=== PATIENT | female | born 1955 | race Caucasian/White ===

== ENCOUNTER → 2017-01-08 | Outpatient (CLI) | payer BC ==
[~2017-01-08] MED LIST: MULT-506 PO
--- NOTE | 2017-01-09 14:53 | MAMMOGRAPHY REPORT ---
BILATERAL DIGITAL SCREENING MAMMOGRAM TOMOSYNTHESIS WITH CAD: 01/08/2017 CLINICAL HISTORY: Routine screening. Patient has no complaints. TECHNIQUE: Breast tomosynthesis in addition to standard 2D mammography was performed. Current study was also evaluated with a Computer Aided Detection (CAD) system. COMPARISON: Comparison is made to exams dated: 01/06/2016 mammogram, 11/03/2014 mammogram, 07/01/2013 mammogram, 04/18/2012 mammogram, 04/18/2012 ultrasound, and 04/11/2012 mammogram - [facility]. BREAST COMPOSITION: The tissue of both breasts is heterogeneously dense, which may obscure small ma sses. FINDINGS: The parenchymal pattern is similar to prior mammograms. There are bilateral benign rim c alcifications. Stable nodular asymmetry in the inferior left breast on the MLO view. No developing mass, architectural distortion or cluster of suspicious microcalcifications is seen in either breas t. IMPRESSION: ACR BI-RADS CATEGORY 2: BENIGN There is no mammographic evidence of malignancy. A 1 year screening mammogram is recommended. The p atient will receive written notification of the results. Approximately 10% of breast cancers are not detected with mammography. A negative mammographic repor t should not delay biopsy if a clinically suggestive mass is present. Dinorah Hicks M.D. ay/:01/08/2017 18:46:08 [employer]: Nidhi MITCHELL(R)(M), [facility] letter sent: Normal 1/2 BI-RADS Code: ACR BI-RADS Category 2: Benign
== END | disposition home or self-care (01) ==
LOC: C.MAMM 13:28
PROVIDERS: ATTEND Obstetrics & Gynecology
DX: Z12.31 Encounter for screening mammogram for malignant neoplasm of breast (principal)

== ENCOUNTER → 2017-05-15 | Outpatient (CLI) | payer BC | END | disposition home or self-care (01) | LOC: C.PAPS 11:16 | PROVIDERS: ATTEND Obstetrics & Gynecology | DX: Z01.419 Encounter for gynecological examination (general) (routine) without abnormal findings (principal) ==

== ENCOUNTER 2023-10-29 15:20 | Observation (INO) ==
--- NOTE | 2023-10-29 15:59 | ED Triage Note ---
Date of Service October 29, 2023 Provider in Triage Author: Shira Velasco History of Present Illness This patient was briefly evaluated while in triage. An abbreviated physical exam was performed. This patient is a 68-year-old Female who presents to the ED for evaluation of chest pain. She developed itchiness and hives last night which has continued. She has swelling of the lips today. She recently completed a course of Macrobid. After eating around 1.5 hours ago she developed a severe chest pain with radiation into her back which has improved about 5 minutes ago. She states that earlier in the day she had some fatigue and shortness of breath. She denies cardiac history. Physical Exam VITALS: Vitals are noted on the nurse's note and reviewed by myself. GENERAL: This is a 68-year-old female, in no acute distress, well-developed well-nourished. SKIN: Diffuse urticaria. HEENT: Swelling of the lower lip noted. HEART: Regular rate and rhythm. LUNGS: Clear to auscultation. No accessory muscle use. NEURO: Alert and oriented. No obvious neurological deficits on quick neuro exam. Initial orders for labs and / or imaging were placed and patient was placed in the waiting area until a bed is available. Please see further documentation for the full ED course.
--- NOTE | 2023-10-29 17:03 | XRay Report ---
SINGLE VIEW CHEST CLINICAL HISTORY: Atypical chest pain FINDINGS: An AP, portable, upright chest radiograph is obtained. No prior studies are available for c omparison at the time of dictation. The examination is degraded by portable technique and patient rot ation. The cardiomediastinal silhouette is unremarkable. There is bibasilar scarring/atelectasis. No nspecific interstitial thickening is likely chronic. No airspace consolidation or large pleural effus ion is identified. No pneumothorax is seen. The skeletal structures are osteopenic. The bony thorax i s grossly intact. IMPRESSION: No acute cardiopulmonary abnormality. ACT 112: Negative or not required by law. Electronically signed by: Santi Cardona M.D. 10/29/2023 5:02 PM
[2023-10-29] MEDS: dexAMETHasone**PF** 10 MG/ML VIAL IV ONE (17:15)
[2023-10-29 17:21] LABS: Basophils # (auto) 0.01 K/uL (0.00-0.20); Basophils % (auto) 0.1 %; Eosinophils # (auto) 0.04 K/uL (0.00-0.50); Eosinophils % (auto) 0.4 %; Hematocrit (blood only) 42.3 % (37.0-47.0); Hemoglobin 14.3 g/dl (12.0-16.0); Immature Granulocytes # (auto) 0.02 K/uL (0.01-0.20); Immature Granulocytes % (auto) 0.2 %; Lymphocytes # (auto) 0.95 K/uL (1.20-3.40); Lymphocytes % (auto) 9.1 %; Mean Corpuscular Hemoglobin 29.2 pg (25.0-34.0); Mean Corpuscular Hgb Conc 33.8 g/dL (32.0-36.0); Mean Corpuscular Volume 86.5 fL (80.0-100.0); Mean Platelet Volume 10.3 fL (9.4-12.4); Monocytes # (auto) 0.47 K/uL (0.11-0.59); Monocytes % (auto) 4.5 %; Neutrophils # (auto) 8.95 K/uL (1.40-6.50); Neutrophils % (auto) 85.7 %; Platelet Count 243 K/uL (130-400); RDW Coefficient of Variation 12.2 % (11.5-14.5); RDW Standard Deviation 38.7 fL (36.4-46.3); Red Blood Count 4.89 M/uL (4.20-5.40); White Blood Count 10.44 K/ul (4.8-10.8)
[2023-10-29 17:32] LABS: Albumin Globulin Ratio 2.1 (0.9-2); Albumin Level 4.4 gm/dl (3.4-5.0); BUN Creatinine Ratio 23.1 (10-20); Bilirubin,Total 0.6 mg/dl (0.2-1.0); Calcium 9.2 mg/dl (8.6-10.3); Creatinine Clr Calc Pharmacy 71.1 ml/min; Est GFR (African American) 89.9 ml/min; Est GFR (Non-African American) 77.6 ml/min; Globulin 2.1 gm/dl (2.5-4.0); Potassium 4.5 mmol/L (3.5-5.1); Total Protein 6.5 gm/dl (6.0-8.3)
[2023-10-29 17:39] LABS: Troponin I High Sensitivity 3.7 pg/ml (0-14)
[2023-10-29] MEDS: FAMOTIDINE 20MG IV PUSH 20 MG/5 ML SYR IV STA (19:51)
[2023-10-29] MEDS: CETIRIZINE HCL 10 MG TABLET PO ONE (19:51)
--- NOTE | 2023-10-29 20:25 | Emergency Department Note ---
ED Provider Note History of Present Illness Chief Complaint: Chest Pain Stated Complaint: HIVES AND CHEST PAINS Time Seen by Provider: 10/29/23 17:33 This is a 68-year-old female with a history of Ariza's esophagus accompanied by her who presents to the emergency department with hives and chest pain. She states that yesterday she started noticing an itchy rash on her face. This progressed onto the rest of her body through the night and she was very pruritic overnight, did not sleep very much. The rash persisted today. She was at home and had just finished eating a meal when she developed sharp stabbing central chest pain that radiated to her back and lasted for about 2 hours. She felt nauseous but did not have any vomiting. The pain did not radiate into her arm or jaw. The pain seemed to resolve for the most part but caused the patient enough concern to come to the emergency department to have this evaluated. She does admit that she was feeling a little short of breath earlier today before the chest pain. She was having some pain when she took a deep breath in earlier, but that is not present now. She has not had any fevers, chills, abdominal pain, cough, hemoptysis. No history of anaphylaxis. Has a history of allergy to certain foods but not causing hives or anaphylaxis. Patient is otherwise healthy, no history of cardiac disease, diabetes, hypertension, or hyperlipidemia. She has 2 brothers who have recently been diagnosed with abdominal aortic aneurysms. Home Medications Medication Instructions Recorded Confirmed Type acetaminophen 500 mg tablet 1,000 mg PO TID PRN pain 12/27/20 10/29/23 History lifitegrast 5 % eye drops in a 1 drp ophthalmic (eye) BID 12/27/20 10/29/23 History dropperette (Xiidra) conjugated estrogens 0.625 mg/gram 0.3125 mg vaginal 2XWK 10/29/23 10/29/23 History vaginal cream (Premarin) Allergies Allergy/AdvReac Type Severity Reaction Status Date / Time gluten Allergy Intermediate stomach Verified 10/29/23 19:57 ache, nausea lactose Allergy Intermediate diarrhea, Verified 10/29/23 19:57 cramps, nausea, fatigue Soy Allergy Intermediate acid Uncoded 10/29/23 19:57 reflux, lost voice, difficulty swallowing Past Med/Surg History Medical History Left foot pain Chronic thumb pain, bilateral Asymptomatic menopausal state Postmenopausal atrophic vaginitis Osteopenia dexa 04/13 Surgical History History of tonsillectomy and adenoidectomy H/O oral surgery History of colonoscopy H/O section x2 Family History Mother Cancer unknown primary, lung? Uncle No problems noted. Aunt No problems noted. Father Pancreatic cancer Other Breast cancer Denies family history of Ovarian cancer Social History Smoking Status: Never smoker Do You Dip or Chew Tobacco: No; Feels Safe at Home: Yes Physical Exam Vital Signs Vital Signs - 24 hr 10/29/23 15:57 10/29/23 16:50 10/29/23 17:13 Temperature 97.7 F Temperature Source Temporal Artery Scan Pulse Rate 83 85 Pulse Rate from SpO2 Sensor Respiratory Rate 20 15 Respiratory Effort / Characteristics Non-Labored Spontaneous Respiratory Depth Normal Blood Pressure 121/83 Blood Pressure Mean 95 Pulse Oximetry 97 98 Oxygen Delivery Method Room Air Room Air Sepsis Recent Fever Within 48 Hours No Sepsis New/Unexplained Change in Mental Status No Sepsis Action Taken by Nursing No Action Required 10/29/23 17:20 10/29/23 17:25 10/29/23 17:30 Temperature Temperature Source Pulse Rate 65 77 64 Pulse Rate from SpO2 Sensor Respiratory Rate 13 13 Respiratory Effort / Characteristics Respiratory Depth Blood Pressure Blood Pressure Mean Pulse Oximetry Oxygen Delivery Method Sepsis Recent Fever Within 48 Hours Sepsis New/Unexplained Change in Mental Status Sepsis Action Taken by Nursing 10/29/23 17:40 10/29/23 17:50 10/29/23 18:00 Temperature Temperature Source Pulse Rate 69 61 62 Pulse Rate from SpO2 Sensor Respiratory Rate 22 9 L 14 Respiratory Effort / Characteristics Respiratory Depth Blood Pressure Blood Pressure Mean Pulse Oximetry Oxygen Delivery Method Sepsis Recent Fever Within 48 Hours Sepsis New/Unexplained Change in Mental Status Sepsis Action Taken by Nursing 10/29/23 18:10 10/29/23 18:20 10/29/23 18:30 Temperature Temperature Source Pulse Rate 65 64 66 Pulse Rate from SpO2 Sensor Respiratory Rate 12 18 23 Respiratory Effort / Characteristics Respiratory Depth Blood Pressure Blood Pressure Mean Pulse Oximetry Oxygen Delivery Method Sepsis Recent Fever Within 48 Hours Sepsis New/Unexplained Change in Mental Status Sepsis Action Taken by Nursing 10/29/23 18:40 10/29/23 18:50 10/29/23 19:00 Temperature Temperature Source Pulse Rate 64 66 67 Pulse Rate from SpO2 Sensor Respiratory Rate 15 17 13 Respiratory Effort / Characteristics Respiratory Depth Blood Pressure 123/55 L Blood Pressure Mean 77 Pulse Oximetry 97 Oxygen Delivery Method Sepsis Recent Fever Within 48 Hours Sepsis New/Unexplained Change in Mental Status Sepsis Action Taken by Nursing 10/29/23 19:06 10/29/23 19:08 10/29/23 19:51 Temperature Temperature Source Pulse Rate 66 66 70 Pulse Rate from SpO2 Sensor 69 Respiratory Rate 18 18 17 Respiratory Effort / Characteristics Respiratory Depth Blood Pressure 123/55 L Blood Pressure Mean 66 Pulse Oximetry 97 97 Oxygen Delivery Method Sepsis Recent Fever Within 48 Hours Sepsis New/Unexplained Change in Mental Status Sepsis Action Taken by Nursing 10/29/23 20:00 10/29/23 20:10 10/29/23 20:20 Temperature Temperature Source Pulse Rate 65 68 71 Pulse Rate from SpO2 Sensor 65 66 72 Respiratory Rate 13 13 18 Respiratory Effort / Characteristics Respiratory Depth Blood Pressure Blood Pressure Mean Pulse Oximetry 97 96 98 Oxygen Delivery Method Sepsis Recent Fever Within 48 Hours Sepsis New/Unexplained Change in Mental Status Sepsis Action Taken by Nursing CONSTITUTIONAL: Well developed, well nourished, in no acute distress, EYES: conjunctivae normal, extraocular muscles intact. ENMT: External ears normal. Nose with normal external appearance, no congestion. Oral mucous membranes moist. Oropharynx normal. No angioedema. No significant facial rash. NECK: Full active range of motion. RESPIRATORY: Breathing unlabored and symmetric. Lungs clear to auscultation bilaterally. No wheeze, rales, or rhonchi. CARDIOVASCULAR: Regular rate and rhythm. No murmurs, rubs, or gallops. ABDOMEN: Normal bowel sounds. Soft, nontender, no peritonitis. No masses. MUSCULOSKELETAL: Moves all extremities at all joints without pain or difficulty. No edema or tenderness in bilateral lower extremities. SKIN: [place], warm, dry. There are slightly raised blanchable urticarial lesions present on bilateral medial thighs and less prominent on the back. No blistering. NEUROLOGIC: Awake, alert, oriented. Gaze is conjugate. Face symmetric, speech normal. Moves head and all four extremities spontaneously. Sensation and strength grossly intact. Course Administered Medications Discontinued Medications Cetirizine HCl (Cetirizine Hcl 10 Mg Tablet) 10 mg PO NOW ONE Stop: 10/29/23 19:20 Last Admin: 10/29/23 19:51 Dose: 10 mg Documented By: FARA Dexamethasone Sodium Phosphate (DexamethasonePf 10 Mg/Ml Vial) 10 mg IV NOW ONE Stop: 10/29/23 16:02 Last Admin: 10/29/23 17:15 Dose: 10 mg Documented By: DRE Famotidine (Pepcid 20mg Iv Push) 20 mg in 5 mls @ 2.5 mls/min IV NOW STA Stop: 10/29/23 19:20 Last Admin: 10/29/23 19:51 Dose: 2.5 mls/min Documented By: FARA Medical Decision Making Differential Diagnosis Myocardial infarction, pulmonary embolism, pneumothorax, esophageal rupture, pneumonia, aortic dissection, GERD, costochondritis, reactive airway disease, upper respiratory infection, bronchitis, pericarditis, myocarditis, effusion, muscle spasm, anaphylaxis, Mccurdy-Vamshi syndrome, urticaria, dermatitis, pityriasis rosea, erythema multiforme, among other pathology Laboratory Data 10/29/23 16:35 10/29/23 16:35 Lab Results 10/29/23 Range/Units 16:35 WBC 10.44 (4.8-10.8) K/ul RBC 4.89 (4.20-5.40) M/uL Hgb 14.3 (12.0-16.0) g/dl Hct 42.3 (37.0-47.0) % MCV 86.5 (80.0-100.0) fL MCH 29.2 (25.0-34.0) pg MCHC 33.8 (32.0-36.0) g/dL RDW Std Deviation 38.7 (36.4-46.3) fL RDW Coeff of Tamra 12.2 (11.5-14.5) % Plt Count 243 (130-400) K/uL MPV 10.3 (9.4-12.4) fL Immature Gran % (Auto) 0.2 % Neut % (Auto) 85.7 % Lymph % (Auto) 9.1 % [place] % (Auto) 4.5 % Eos % (Auto) 0.4 % Baso % (Auto) 0.1 % Neut # (Auto) 8.95 H (1.40-6.50) K/uL Lymph # (Auto) 0.95 L (1.20-3.40) K/uL [place] # (Auto) 0.47 (0.11-0.59) K/uL Eos # (Auto) 0.04 (0.00-0.50) K/uL Baso # (Auto) 0.01 (0.00-0.20) K/uL Immature Gran # (Auto) 0.02 (0.01-0.20) K/uL Sodium 137 (136-145) mmol/L Potassium 4.5 (3.5-5.1) mmol/L Chloride 104 (98-107) mmol/L Carbon Dioxide 27 (21-32) mmol/L Anion Gap 6 (3-11) BUN 18 (6-23) mg/dl Creatinine 0.78 (0.6-1.2) mg/dl Est Cr Clr Drug Dosing 71.1 ml/min Est GFR ( Amer) 89.9 ml/min Est GFR (Non-Af Amer) 77.6 ml/min BUN/Creatinine Ratio 23.1 H (10-20) Glucose 116 H (70-99(Fasting)) mg/dl Calcium 9.2 (8.6-10.3) mg/dl Total Bilirubin 0.6 (0.2-1.0) mg/dl AST 27 (13-39) U/L ALT 46 (7-52) U/L Alkaline Phosphatase 78 (34-104) U/L Troponin I High Sens 3.7 (0-14) pg/ml Total Protein 6.5 (6.0-8.3) gm/dl Albumin 4.4 (3.4-5.0) gm/dl Globulin 2.1 L (2.5-4.0) gm/dl Albumin/Globulin Ratio 2.1 H (0.9-2) Imaging Data Attestation: I personally reviewed and interpreted this imaging study as follows: (I agree with the radiologist's interpretation) Radiologist's Impression: Chest X-Ray 10/29/23 16:01 SINGLE VIEW CHEST CLINICAL HISTORY: Atypical chest pain FINDINGS: An AP, portable, upright chest radiograph is obtained. No prior studies are available for comparison at the time of dictation. The examination is degraded by portable technique and patient rotation. The cardiomediastinal silhouette is unremarkable. There is bibasilar scarring/atelectasis. Nonspecific interstitial thickening is likely chronic. No airspace consolidation or large pleural effusion is identified. No pneumothorax is seen. The skeletal structures are osteopenic. The bony thorax is grossly intact. IMPRESSION: No acute cardiopulmonary abnormality. ACT 112: Negative or not required by law. Electronically signed by: Santi Cardona M.D. 10/29/2023 5:02 PM ECG Data Attestation: I personally reviewed and interpreted this ECG as follows: (1633: Sinus rhythm with a rate of 70. Intervals within normal limits. Normal axis. No acute ST elevation.) MDM Narrative This is a 68-year-old female with a history of Ariza's esophagus, otherwise healthy who presents to the emergency department with a pruritic rash that started on her face, spread onto her body yesterday. She developed sharp stabbing central chest pain that radiated to the back today after eating a meal which caused nausea, dyspnea, and lasted for about 2 hours. See above for further details. Patient now resting comfortably in no distress with normal vital signs. She does appear to have raised urticarial type lesions on her thighs and back. Remainder of exam is reassuring. ECG reassuring. Differential diagnosis considered above. Patient declined anything for pain or nausea. She was given dexamethasone from triage. She was also ordered cetirizine and Pepcid. Developed a paradoxical reaction to Benadryl. Chest x-ray 1 view Labs: No leukocytosis or anemia. Normal renal function. No electrolyte disturbance. No transaminitis. Initial troponin negative. Heart score: 3-4 points Patient's pruritus improved with the dexamethasone. She otherwise rested comfortably and remained with a 1 out of 10 chest discomfort. Case reviewed with ED attending Dr. Simon. Recommendation will be to admit the patient to the hospitalist for observation and further workup. Repeat troponin pending at time of admission. Case reviewed with [facility] hospitalist Dr. Hidalgo. Impression Chest pain, Urticarial rash Discharge Plan Visit Data Chief Complaint: Chest Pain Stated Complaint: HIVES AND CHEST PAINS ED Provider: Jose Simon ED Midlevel Provider: Zeke Paul Discharge Problem: Chest pain, Urticarial rash Patient Disposition: Admitted As Inpatient Condition: Good Prescriptions Prescriptions: No Action acetaminophen 500 mg Tablet 1,000 mg PO TID PRN (Reason: pain) Xiidra 5 % Dropperette 1 drp OPHTHALMIC (EYE) BID Premarin 0.625 mg/gram cream 0.3125 mg vaginal 2XWK Rx Instructions: SUNDAYS & SATURDAY Referrals Referrals: Pool Galvan MD [Primary Care Provider] - Discharge Problem: Chest pain Qualifiers: Chest pain type: unspecified Qualified Code(s): R07.9 - Chest pain, unspecified
--- NOTE | 2023-10-29 21:47 | History & Physical Report ---
Date of Service October 29, 2023 Assessment & Plan (1) Chest pain: Plan 68-year-old female with past med history significant for allergic rhinitis, mild intermittent asthma, GERD, irritable bowel syndrome, Ariza's esophagus with esophagitis, B12 deficiency, rosacea, osteoarthritis, stapedial myoclonus, right sacral radiculopathy, neuropathy, gluten intolerance, lactose intolerance, history of COVID, history of vertigo, comes because of hives and itching all over the body since last night and also chest pain today afternoon. Patient states since yesterday evening having significant itching of the hands and legs and then developed hives all over the body mostly in the groin and the belly region and also in the legs and face region. Today morning she was feeling very weak and tired. She made an appointment with urgent care around 3 PM. Around 2 PM when she had her lunch she suddenly developed severe chest pain in the middle of the chest radiating to the back which prompted her to come to the ER. The pain lasted waxing and waning for 2 hours. Currently chest pain-free. No shortness of breath. No dizziness. No blurred visions. When she had the pain she had a earache but it is gone now. No runny nose or sore throat. No cough. No fevers. No nausea. No abdominal pain. Normal bowel and bladder movements. With the steroids and Pepcid and Zyrtec in the ER rash on the face improved and itching is improving but still has significant hives in the groin and lower extremity. She is allergic to wheat and she had wheat product couple of days ago but usual symptoms are stomach upset and she never had rash and itching before.Also recently she was on Macrobid for UTI seems finished the course on October 26. She had some itchiness, couple of days ago before the hives developing. Currently resting comfortably and hemodynamic stable. She has travel plans on . Says she has dermatology appointment for hives tomorrow around 3:40 PM Chest pain Was in the middle of the chest radiating to the back Currently chest pain-free Hemodynamic stable Resting comfortably Initial troponin and EKG unremarkable Will follow serial cardiac enzymes and echo N.p.o. for now Consult cardiology in a.m. Rash Hives and itching Currently more pronounced in lower extremities Received Decadron, Pepcid and Zyrtec in the ER Patient states she is allergic to Benadryl and she gets jittery and does not feel good with Benadryl So far tolerating Zyrtec okay Will continue with Solu-Medrol, Pepcid and if tolerates will continue Zyrtec Consult allergy and immunology in a.m. Closely monitor the response History of Ariza's esophagitis Currently placed on Pepcid DVT prophylaxis SCDs Disposition Observation telemetry Full code History of Present Illness Chief Complaint: Chest pain and hives Primary Care Provider: Pool Galvan MD 68-year-old female with past med history significant for allergic rhinitis, mild intermittent asthma, GERD, irritable bowel syndrome, Ariza's esophagus with esophagitis, B12 deficiency, rosacea, osteoarthritis, stapedial myoclonus, right sacral radiculopathy, neuropathy, gluten intolerance, lactose intolerance, history of COVID, history of vertigo, comes because of hives and itching all over the body since last night and also chest pain today afternoon. Patient states since yesterday evening having significant itching of the hands and legs and then developed hives all over the body mostly in the groin and the belly region and also in the legs and face region. Today morning she was feeling very weak and tired. She made an appointment with urgent care around 3 PM. Around 2 PM when she had her lunch she suddenly developed severe chest pain in the middle of the chest radiating to the back which prompted her to come to the ER. The pain lasted waxing and waning for 2 hours. Currently chest pain-free. No shortness of breath. No dizziness. No blurred visions. When she had the pain she had a earache but it is gone now. No runny nose or sore throat. No cough. No fevers. No nausea. No abdominal pain. Normal bowel and bladder moveme nts. With the steroids and Pepcid and Zyrtec in the ER rash on the face improved and itching is improving but still has significant hives in the groin and lower extremity. She is allergic to wheat and she had wheat product couple of days ago but usual symptoms are stomach upset and she never had rash and itching before.Also recently she was on Macrobid for UTI seems finished the course on October 26. She had some itchiness, couple of days ago before the hives developing. Currently resting comfortably and hemodynamic stable. She has travel plans on . Says she has dermatology appointment for hives tomorrow around 3:40 PM Past med history. As mentioned above Past surgical history. . Colonoscopy. EGD. Tonsillectomy and adenoidectomy. Social history. . No smoking. Alcohol occasional. No drug use. Family history. Father had pancreatic cancer mother had cancer. Maternal aunt had cancer. Allergies Allergy/AdvReac Type Severity Reaction Status Date / Time gluten Allergy Intermediate stomach Verified 10/29/23 19:57 ache, nausea lactose Allergy Intermediate diarrhea, Verified 10/29/23 19:57 cramps, nausea, fatigue soy Allergy Intermediate acid Verified 10/29/23 22:05 reflux, lost voice, difficulty swallowing Home Medications Medication Instructions Recorded Confirmed Type acetaminophen 500 mg tablet 1,000 mg PO TID PRN pain 12/27/20 10/29/23 History lifitegrast 5 % eye drops in a 1 drp ophthalmic (eye) BID 12/27/20 10/29/23 History dropperette (Xiidra) conjugated estrogens 0.625 mg/gram 0.3125 mg vaginal 2XWK 10/29/23 10/29/23 Hi story vaginal cream (Premarin) Past Med/Surg History Medical History Left foot pain Chronic thumb pain, bilateral Asymptomatic menopausal state Postmenopausal atrophic vaginitis Osteopenia dexa 04/13 Surgical History History of tonsillectomy and adenoidectomy H/O oral surgery History of colonoscopy H/O section x2 Family History Mother Cancer unknown primary, lung? Uncle No problems noted. Aunt No problems noted. Father Pancreatic cancer Other Breast cancer Denies family history of Ovarian cancer Social History Smoking Status: Never smoker Do You Dip or Chew Tobacco: No; Hx Alcohol Use: No Hx Substance Use: No Preferred Language: Bruneian Communication Ability: Effective Assembly Line Upholsterer Required: No Beliefs That Will Affect Care: None Current Living Situation: Spouse Feels Safe at Home: Yes Safety Concerns: Feels Safe At This Time Assistive Devices: Glasses Review of Systems Review of Systems: All systems reviewed & are unremarkable except as noted in HPI & below Physical Exam Physical Exam: General- Not in acute distress Head- atraumatic Eyes- PERRL. ENT- oropharynx clear Neck- supple, no JVD. Lungs- clear to auscultation no wheezing or crackles. Heart- regular rate and rhythm; no murmur, no gallop Abdomen- normal bowel sounds, soft, nontender, no distension. Extremities- no pretibial edema, no erythema seen. Neuro- alert, oriented PERRL, no facial palsy; no dysarthria; moves extremities. Skin-Hives on face, lips, groin, and extremities. More pronounced in groin and thigh region. Results & Data Results & Data Vital Signs (Past 12 Hours) Vital Signs Temp Pulse Resp BP Pulse Ox O2 Del Method 10/29/23 20:20 71 18 98 10/29/23 20:10 68 13 96 10/29/23 20:00 65 13 97 10/29/23 19:51 70 17 97 10/29/23 19:08 66 18 123/55 L 97 10/29/23 19:06 66 18 10/29/23 19:00 67 13 123/55 L 97 10/29/23 18:50 66 17 10/29/23 18:40 64 15 10/29/23 18:30 66 23 10/29/23 18:20 64 18 10/29/23 18:10 65 12 10/29/23 18:00 62 14 10/29/23 17:50 61 9 L 10/29/23 17:40 69 22 10/29/23 17:30 64 13 10/29/23 17:25 77 10/29/23 17:20 65 13 10/29/23 17:13 85 15 10/29/23 16:50 98 Room Air 10/29/23 15:57 36.5 C 83 20 121/83 97 Room Air Diagnostic Findings Laboratory Results WBC 10.44 K/ul (4.8-10.8) 10/29/23 16:35 RBC 4.89 M/uL (4.20-5.40) 10/29/23 16:35 Hgb 14.3 g/dl (12.0-16.0) 10/29/23 16:35 Hct 42.3 % (37.0-47.0) 10/29/23 16:35 MCV 86.5 fL (80.0-100.0) 10/29/23 16:35 MCH 29.2 pg (25.0-34.0) 10/29/23 16: MCHC 33.8 g/dL (32.0-36.0) 10/29/23 16:35 RDW Std Deviation 38.7 fL (36.4-46.3) 10/29/23 16:35 RDW Coeff of Tamra 12.2 % (11.5-14.5) 10/29/23 16:35 Plt Count 243 K/uL (130-400) 10/29/23 16:35 MPV 10.3 fL (9.4-12.4) 10/29/23 16:35 Immature Gran % (Auto) 0.2 % 10/29/23 16:35 Neut % (Auto) 85.7 % 10/29/23 16:35 Lymph % (Auto) 9.1 % 10/29/23 16:35 Bledsoe % (Auto) 4.5 % 10/29/23 16:35 Eos % (Auto) 0.4 % 10/29/23 16:35 Baso % (Auto) 0.1 % 10/29/23 16:35 Neut # (Auto) 8.95 K/uL (1.40-6.50) H 10/29/23 16:35 Lymph # (Auto) 0.95 K/uL (1.20-3.40) L 10/29/23 16:35 Bledsoe # (Auto) 0.47 K/uL (0.11-0.59) 10/29/23 16:35 Eos # (Auto) 0.04 K/uL (0.00-0.50) 10/29/23 16:35 Baso # (Auto) 0.01 K/uL (0.00-0.20) 10/29/23 16:35 Immature Gran # (Auto) 0.02 K/uL (0.01-0.20) 10/29/23 16:35 Sodium 137 mmol/L (136-145) 10/29/23 16:35 Potassium 4.5 mmol/L (3.5-5.1) 10/29/23 16:35 Chloride 104 mmol/L (98-107) 10/29/23 16:35 Carbon Dioxide 27 mmol/L (21-32) 10/29/23 16:35 Anion Gap 6 (3-11) 10/29/23 16:35 BUN 18 mg/dl (6-23) 10/29/23 16:35 Creatinine 0.78 mg/dl (0.6-1.2) 10/29/23 16:35 Est Cr Clr Drug Dosing 71.1 ml/min 10/29/23 16:35 Est GFR ( Amer) 89.9 ml/min 10/29/23 16:35 Est GFR (Non-Af Amer) 77.6 ml/min 10/29/23 16:35 BUN/Creatinine Ratio 23.1 (10-20) H 10/29/23 16:35 Glucose 116 mg/dl (70-99(Fasting)) H 10/29/23 16:35 Calcium 9.2 mg/dl (8.6-10.3) 10/29/23 16:35 Total Bilirubin 0.6 mg/dl (0.2-1.0) 10/29/23 16:35 AST 27 U/L (13-39) 10/29/23 16:35 ALT 46 U/L (7-52) 10/29/23 16:35 Alkaline Phosphatase 78 U/L (34-104) 10/29/23 16:35 Troponin I High Sens 3.7 pg/ml (0-14) 10/29/23 16:35 Total Protein 6.5 gm/dl (6.0-8.3) 10/29/23 16:35 Albumin 4.4 gm/dl (3.4-5.0) 10/29/23 16:35 Globulin 2.1 gm/dl (2.5-4.0) L 10/29/23 16:35 Albumin/Globulin Ratio 2.1 (0.9-2) H 10/29/23 16:35 Impressions Chest X-Ray 10/29/23 16:01 SINGLE VIEW CHEST CLINICAL HISTORY: Atypical chest pain FINDINGS: An AP, portable, upright chest radiograph is obtained. No prior studies are available for comparison at the time of dictation. The examination is degraded by portable technique and patient rotation. The cardiomediastinal silhouette is unremarkable. There is bibasilar scarring/atelectasis. Nonspecific interstitial thickening is likely chronic. No airspace consolidation or large pleural effusion is identified. No pneumothorax is seen. The skeletal structures are osteopenic. The bony thorax is grossly intact. IMPRESSION: No acute cardiopulmonary abnormality. ACT 112: Negative or not required by law. Electronically signed by: Santi Cardona M.D. 10/29/2023 5:02 PM ECG Additional Comments: ECG. Normal sinus rhythm with rate of 70. Nonspecific T wave abnormalities. Code Status & VTE Plan VTE Prophylaxis Plan VTE Prophylaxis will be ordered: Yes (1) Chest pain Chest pain type: unspecified Qualified Code(s): R07.9 - Chest pain, unspecified
[2023-10-29] MEDS ORDERED: ACETAMINOPHEN 325 MG TAB PO PRN (22:00)
[2023-10-29] MEDS ORDERED: NITROGLYCERIN SL 0.4 MG/TAB TAB SL PRN (22:00)
[2023-10-29] MEDS ORDERED: ARTIFICIAL TEARS OP PRN (22:11)
[2023-10-30 04:21] LABS: Hematocrit (blood only) 38.5 % (37.0-47.0); Immature Granulocytes # (auto) 0.03 K/uL (0.01-0.20); Immature Granulocytes % (auto) 0.4 %; Lymphocytes # (auto) 0.62 K/uL (1.20-3.40); Lymphocytes % (auto) 9.3 %; Mean Corpuscular Hgb Conc 33.8 g/dL (32.0-36.0); Mean Corpuscular Volume 85.9 fL (80.0-100.0); Mean Platelet Volume 10.3 fL (9.4-12.4); Monocytes % (auto) 1.5 %; Neutrophils # (auto) 5.95 K/uL (1.40-6.50); Neutrophils % (auto) 88.8 %; Platelet Count 247 K/uL (130-400); RDW Coefficient of Variation 12.1 % (11.5-14.5); RDW Standard Deviation 38.2 fL (36.4-46.3); Red Blood Count 4.48 M/uL (4.20-5.40)
[2023-10-30 04:36] LABS: BUN Creatinine Ratio 22.4 (10-20); Creatinine Clr Calc Pharmacy 82.8 ml/min; Est GFR (African American) 103.9 ml/min; Est GFR (Non-African American) 89.7 ml/min
[2023-10-30 04:44] LABS: Troponin I High Sensitivity 2.9 pg/ml (0-14)
--- OUTSIDE RECORDS SUMMARY | 2023-10-30 06:28 | External Medical Summary | Summary of Care ---
Author Name Unknown Organization [facility] Address [address] [place] [address] Phone [phone] Care Team Providers Care Surveillance Monitor Name Role Phone Pool Galvan MD Primary Care Provider + Reason for Visit * Reason Onset Date Comments I/P Precert Approved 06/03/2023 EGD Encounter Details Date Type Department Care Team Description 06/03/2023 Telephone Family Practice [facility] [address] [place] [address] Pool Galvan MD [address] [place] [id number] I/P Precert Approved (EGD) Allergies Active Allergy Reactions Severity Noted Date Comments Gluten Meal 11/23/2020 sensitivity - Lactose 06/11/2014 Soy Allergy 06/11/2014 Camphor 11/23/2020 documented as of this encounter (statuses as of 06/03/2023) Medications Medication Sig Dispensed Refills Start Date End Date Status Cholecalciferol (VITAMIN D3) 250 MCG (60255 UT) Capsule Take 1 Capsule by mouth in the morning. 0 Active Turmeric 500 MG Oral Tablet Take by mouth. 0 Active Xiidra 5 % Ophthalmic Solution (Lifitegrast) Instill into eye. 0 Acti ve Acetaminophen ER 650 MG Oral Tablet Extended Release Take 1 Tablet by mouth every 8 hours as needed. 0 Active B Complex-C Oral Tablet (Therapeutic B Complex w/C) Take 1 Tablet by mouth in the morning. 0 Active Vitamin B-12 5000 MCG Sublingual Tablet SublingualIndication s:B12 deficiency 1 tab daily 1 Tab 0 05/30/2021 Active Premarin 0.625 MG/GM Vaginal Cream (Estrogens Conjugated)Indicatio ns:Dysuria Administer 0.5 g into the vagina at bedtime. Twice a week as directed. 42.5 g 5 04/30/2023 Active Triamcinolone Acetonide 0.5 % External Cream (Aristocort)Indicati ons:Dyshidrotic eczema Apply topically to affected area 2 times a day. To affected area. 20 g 5 04/30/2023 Active documented as of this encounter (statuses as of 06/03/2023) Active Problems Problem Noted Date Ariza's esophagus with esophagitis 05/2023 Overview: LA grade A 11/26/22 History of 2019 novel coronavirus diseas e (COVID-19) 01/02/2022 Gluten intolerance 11/23/2020 Overview: 2019 TTG WNL. Skin, energy improved off it. B12 deficiency 11/23/2020 Neuropathy 05/26/2020 Right sacral radiculopathy 05/16/2020 Lumbar degenerative disc disease 020 Primary osteoarthritis of both feet 04/27 Flat foot 05/16/2020 Bilateral carpal tunnel syndrome 020 Asthma, mild intermittent 12/11/2019 Well adult exam 12/04/2017 Overview: 12/16 colon--WNL silva 4y. EGD +esophagitis. Barretts signed. 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 Silva 4y. 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 Primary osteoarthritis of both hands VERTIGO (DYSEQUILIBRIUM) 06/04/2011 GERD (gastroesophageal reflux disease) 0 04/17/2002 Overview: EGD 11/2022 path - esophagitis, inflammation and metaplasia, repeat EGD 2023 Irritable bowel syndrome 04/15/2002 Rosacea 10/28/2000 Other allergic rhinitis Overview: ICD-10 update of inactive term Lactose intolerance documented as of this encounter (statuses as of 06/03/2023) Resolved Problems Problem Noted Date Resolved Date Viral wart on finger 05/17/2015 08/15/2017 Influenza with respiratory m anifestation other than pneumonia 09/20/2012 11/23/2012 Routine general medical exam ination at a health care facility 04/18/2012 08/15/2017 Overview: s/p transplant. Pt needs yearly FLU shots. I see her daughter 03/11 colon @[facility]--5mm polyp path Tubular adenoma. Silva 4y 11/07 mammo WNL [facility] [place] 07/09 stress echo WNL. Mild MR 03/05, 07/04, 04/02 pap WNL outside-scanned 03/30 DEXA @[facility] [place] borderline osteopenia T-1.0 Lumbar Abnormal mammogram 04/15/2012 04/18/2012 Overview: 04/06-Mammo@ [facility] [place]_left breast-US WNl. Repeat 1Y mammo. Impacted cerumen 06/04/2011 05/17/2015 Chronic otitis externa 06/04/2011 5 Other specified forms of hearing loss 06/04/2011 05/17/2015 FAMILY HX-GI MALIGNANCY- aunt and uncle 10/29/1905/17/2015 Reflux esophagitis 07/29/2019 documented as of this encounter (statuses as of 06/03/2023) Immunizations Name Administration Dates Next Due COVID-19 mRNA, LNP-s, No Pre serve, 2-Dose Series (Moderna) 05/29/2021,10/29/2020,09/24/2020 COVID-19, LNP-s, No Preserve , Joseph-sucrose, Ages 12+ (Pfizer) 03/14/2022 Pneumococcal Conjugate Vacc, 13 Valent (Prevnar) 10/06/2019 Pneumococcal Polysaccharide PPV23 (Pneumovax) 06/01/2022 SEASONAL INFLUENZA, PF, 6 M & Above, IM , (FLULAVAL or FLUZONE) 05/26/2020,06/12/2018,08/06/2017 Seasonal Influenza, Quadriva lent Hd (Fluzone Hd) 06/01/2022,07/03/2021 Seasonal Influenza, Quadriva lent, No Preserve, IM 05/21/2016 Seasonal Influenza, Split, I IV3, With Preserve, Inj 05/17/2015,06/11/2014,05/14/2011 Seasonal Influenza, Trivalen t, Adjuvanted, 65+ yrs 07/03/2019 TD - Tetanus/Diptheria (ADULT) 02/23/2007 TDAP (age 10 and older)(Boostrix) 06/03/2023, Varicella Zoster Vaccine (Adult) 03/04/2015 documented as of this encounter Social History Tobacco Use Types Packs/Day Years Used Date Smoking Tobacco: Never Smokeless Tobacco: Never Alcohol Use Standard Drinks/Week Comments Yes 0 (1 standard drink = 0.6 oz pur e alcohol) occasional social. no binge Food Insecurity Answer Date Recorded Within the past 12 months, y ou worried that your food would run out before you got money to buy more. Never true 04/30/2023 Within the past 12 months, t he food you bought just didn't last and you didn't have money to get more. Never true 04/30/2023 Sex Assigned at Date Recorded Female 10/06/2019 12:45 PM EST Job Start Date Occupation Industry Not on file Not on file Not on file documented as of this encounter Miscellaneous Notes * Telephone Encounter - Tri Gonzalez - 06/03/2023 2:38 PM EDT Ariza's esophagus with esophagitis [K22.70, K20.90] EGD documented in this encounter Plan of Treatment Scheduled Procedures Name Priority Associated Diagnoses Date/Ti me ESOPHAGOGASTRODUODENOSCOPY ( EGD), FLEXIBLE, TRANSORAL, DIAGNOSTIC Recall Ariza's esophagus COLONOSCOPY FLEXIBLE PROXIMAL DIAGNOSTIC Recall History of colon polyps Health Maintenance Due Date Last Done Comments Zoster Vaccines (2 of 3) 04/29/2015 03/04/2015 Depression Screening 10/06/2020 10/06/2019 Lipid Panel 12/16/2022 12/16/2017, 11/25, 10/28/2012, Additional history exists Mammogram 11/30/2023 11/29/2022, 10/26, 11/22/2020, Additional history exists Diabetes Screening 10/31/2025 10/31/2022, 0 05/25/2021, 05/16/2020, Additional history exists Ariza's Esophagus Surveilance 11/26/2025 11/26/2022 DXA Scan 11/03/2026 11/04/2019, 09/11/2007 COLONOSCOPY-EVERY 5 YRS AGES 18-100 11/27/2027 11/26/2022, 11/26/2022, 03/26/2017 DTaP,Tdap,and Td Vaccines (3 - Td or Tdap) 06/03/2033 06/03/2023, 04/21/2013, 02/23/2007, Additional history exists Pneumococcal Vaccine: 65+ Years Completed 06/01/2022, 10/06/2019 COVID-19 Vaccine Completed 05/11/2023, , 05/29/2021, Additional history exists Influenza Vaccine (FLU shot) Completed , 06/01/2022, 07/03/2021, Additional history exists GARDASIL-HPV IMMUNIZATION SERIES Aged Out No longer eligible based on patient's age to complete this topic Hepatitis B Aged Out No longer eligi ble based on patient's age to complete this topic MENINGOCOCCAL (MENACTRA/MENVEO) Aged Out No longer eligible based on patient's age to complete this topic documented as of this encounter Medical Devices Not on filedocumented as of this encounter Care Teams Surveillance Monitor Relationship Specialty Start Date End Date Pool Galvan MD [address] [place] [id number] PCP - General Family Medicine 10/11/14 documented as of this encounter
--- OUTSIDE RECORDS SUMMARY | 2023-10-30 06:28 | External Medical Summary | Summary of Care ---
Author Name Unknown Organization [facility] Address [address] [place] [address] Phone [phone] Care Team Providers Care Seismograph Operator Helper Name Role Phone Pool Galvan MD Primary Care Provider + Reason for Visit * Reason Comments Outpatient Testing Encounter Details Date Type Department Care Team Description 06/03/2023 Laboratory Laboratory, [facility] [address] [place] [address] [facility] [address] [place] [address] Lipid screening; B12 deficiency Allergies Active Allergy Reactions Severity Noted Date Comments Gluten Meal 11/23/2020 sensitivity - Lactose 06/11/2014 Soy Allergy 06/11/2014 Camphor 11/23/2020 documented as of this encounter (statuses as of 06/03/2023) Medications Medication Sig Dispensed Refills Start Date End Date Status Cholecalciferol (VITAMIN D3) 250 MCG (27888 UT) Capsule Take 1 Capsule by mouth [...] polyneuropathy with no clear motor axonal involvement 2016 tubular adenoma. Silva 4y. 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 [...] Tubular adenoma. Silva 4y 11/07 mammo WNL [facility] 07/09 stress echo WNL. Mild MR 03/05, 07/04, 04/02 pap WNL outside-scanned 03/30 DEXA @[facility] borderline osteopenia T-1.0 Lumbar Abnormal mammogram 04/15/2012 04/18/2012 Overview: 04/06-Mammo@ [facility]_left breast-US WNl. Repeat 1Y mammo. Impacted cerumen [...] on file documented as of this encounter Plan of Treatment Pending Results Name Type Priority Associated Diagnoses Date /Time LIPID PANEL WITH DIRECT LDL IF TG IS HIGH Lab Routine Lipid screening 06/03/2023 12:42 PM EDT VITAMIN B12 Lab Routine B12 deficiency 06/03/2023 12:42 PM EDT Scheduled Procedures Name Priority Associated Diagnoses Date/Ti me ESOPHAGOGASTRODUODENOSCOPY ( EGD), FLEXIBLE, TRANSORAL, DIAGNOSTIC Recall Ariza's esophagus COLONOSCOPY FLEXIBLE PROXIMAL DIAGNOSTIC Recall History of colon polyps Health Maintenance Due Date Last Done Comments Zoster Vaccines (2 of 3) 04/29/2015 03/04/2015 Depression Screening 10/06/2020 10/06/2019 Lipid Panel 12/16/2022 12/16/2017, 11/25, 10/28/2012, Additional history exists DTaP,Tdap,and Td Vaccines (2 - Td or Tdap) 04/21/2023 06/03/2023, 04/21/2013, 02/23/2007, Additional history exists Mammogram 11/30/2023 11/29/2022, 10/26, 11/22/2020, Additional history exists Diabetes Screening 10/31/2025 10/31/2022, 0 05/25/2021, 05/16/2020, Additional history exists Ariza's Esophagus Surveilance 11/26/2025 11/26/2022 DXA Scan 11/03/2026 11/04/2019, 09/11/2007 COLONOSCOPY-EVERY 5 YRS AGES 18-100 11/27/2027 11/26/2022, 11/26/2022, 03/26/2017 Pneumococcal Vaccine: 65+ Years Completed 06/01/2022, 10/06/2019 [...] Not on filedocumented as of this encounter Visit Diagnoses Diagnosis Lipid screening Screening for lipoid disorders B12 deficiency Other B-complex deficiencies documented in this encounter Care Teams Seismograph Operator Helper Relationship Specialty Start Date End Date Pool Galvan MD [address] [place] [id number] PCP - General Family Medicine 10/11/14 documented as of this encounter
--- OUTSIDE RECORDS SUMMARY | 2023-10-30 06:28 | External Medical Summary | Summary of Care ---
Author Name Unknown Organization [facility] Address [address] [place] [address] Phone [phone] Care Team Providers Care Implementation Specialist Name Role Phone Pool Galvan MD Primary Care Provider + Reason for Visit * Reason Onset Date Comments I/P Precert Approved 06/03/2023 EGD Encounter Details Date Type Department Care Team Description 06/03/2023 Telephone Family Practice [facility] [address] [place] [address] Pool Galvan MD [address] [place] [address] I/P Precert Approved (EGD) Allergies Active Allergy Reactions Severity Noted Date Comments Gluten Meal 11/23/2020 sensitivity - Lactose 06/11/2014 Soy Allergy 06/11/2014 Camphor 11/23/2020 documented as of this encounter (statuses as of 06/03/2023) Medications Medication Sig Dispensed Refills Start Date End Date Status Cholecalciferol (VITAMIN D3) 250 MCG (41304 UT) Capsule Take 1 Capsule by mouth [...] Tubular adenoma. Silva 4y 11/07 mammo WNL [facility] 07/09 stress echo WNL. Mild MR 03/05, 07/04, 04/02 pap WNL outside-scanned 03/30 DEXA @[facility] borderline osteopenia T-1.0 Lumbar Abnormal mammogram 04/15/2012 04/18/2012 Overview: 04/06-Mammo@ [facility]_left breast-US WNl. Repeat 1Y mammo. Impacted cerumen [...] Preserve , Joseph-sucrose, Ages 12+ (Pfizer) 03/14/2022 Diptheria/Tetanus (Adult) 07/29/1993 Pneumococcal Conjugate Vacc, 13 Valent (Prevnar) 10/06/2019 [...] encounter Miscellaneous Notes * Telephone Encounter - LEE Dee - 06/03/2023 4:27 PM EDT Pt not due until November and would like a call back winder to time to schedule On recalls already * Telephone Encounter - Tri Gonzalez - [...] of 3) 04/29/2015 03/04/2015 Depression Screening 10/06/2020 06/03/2023 Lipid Panel 12/16/2022 12/16/2017, 11/25, 10/28/2012, Additional [...] filedocumented as of this encounter Care Teams Implementation Specialist Relationship Specialty Start Date End Date Pool Galvan MD [address] [place] [address] PCP - General Family Medicine 10/11/14 documented as of this encounter
--- OUTSIDE RECORDS SUMMARY | 2023-10-30 06:28 | External Medical Summary | Summary of Care ---
Author Name Unknown Organization [facility] Address [address] [place] [address] Phone [phone] Care Team Providers Care Twenty One Dealer Name Role Phone Pool Galvan MD Primary Care Provider + Reason for Referral * Ancillary Services (Within 30 days (routine)) - Pending Review Specialty Diagnoses / Procedures Referred By Trung monge Referred To Contact Gastroenterology Diagnoses Ariza's esophagus with esophagitis Pool Galvan MD [address] [place] [id number] Referral ID Status Reason Start Date Expiration Date Visits Requested Visits Authorized [id number] Pending Review Ancillary Services Required 06/03/[phone] Question Answer Referral Priority Within 30 days (routine) Where should this appointment be scheduled? [facility] Comments Upper Endoscopy ASGE Guidelines Ariza's esophagus surveillance ADDITIONAL INFORMATION 1. Is the patient on Coumadin? No 2. Is the patient on Pradaxa? No Reason for Visit * Reason Onset Date Comments Physical-Exam Yearly physical Immunizations 06/03/2023 Encounter Details Date Type Department Care Team Description 06/03/2023 Office Visit [facility] [address] [place] [address] Pool Galvan MD [address] [place] [address] Well adult exam*; Need for prophylactic vaccination with tetanus-diphtheria (Td); Right wrist pain; Ariza's esophagus with esophagitis; Lipid screening; Pes planus of both feet; B12 deficiency; Mild intermittent asthma without complication Allergies Active Allergy Reactions Severity Noted Date Comments Gluten Meal 11/23/2020 sensitivity - Lactose 06/11/2014 Soy Allergy 06/11/2014 Camphor 11/23/2020 documented as of this encounter (statuses as of 06/03/2023) Medications Medication Sig Dispensed Refills Start Date End Date Status Cholecalciferol (VITAMIN D3) 250 MCG (32945 UT) Capsule Take 1 Capsule by mouth in the morning. 0 Active Turmeric 500 MG Oral Tablet Take by mouth. 0 Active Xiidra 5 % Ophthalmic Solution (Lifitegrast) Instill into eye. 0 Active Acetaminophen ER 650 MG Oral Tablet Extended Release Take 1 Tablet by mouth every 8 hours as needed. 0 Active B Complex-C Oral Tablet (Therapeutic B Complex w/C) Take 1 Tablet by mouth in the morning. 0 Active Vitamin B-12 5000 MCG Sublingual Tablet SublingualIndica tions:B12 deficiency 1 tab daily 1 Tab 0 05/30/2021 Active Premarin 0.625 MG/GM Vaginal Cream (Estrogens Conjugated)Indic ations:Dysuria Administer 0.5 g into the vagina at bedtime. Twice a week as directed. 42.5 g 5 04/30/2023 Active Triamcinolone Acetonide 0.5 % External Cream (Aristocort)Taylor cations:Dyshidro tic eczema Apply topically to affected area 2 times a day. To affected area. 20 g 5 04/30/2023 Active Omeprazole 20 MG Oral Capsule Delayed Release (PriLOSEC) Take 1 Capsule by mouth in the morning. 90 Capsule 1 12/19/2022 06/03/2023 Discontinue d(Medicatio n List Clean Up) documented as of this encounter (statuses as [...] HOSPITAL 07/09 stress echo WNL. Mild MR 7/11, 07/04, 04/02 pap WNL outside-scanned 03/30 DEXA [...] Date Smoking Tobacco: Never Smokeless Tobacco: Never Tobacco Cessation:Counseling Given: Not Answered Alcohol Use Standard Drinks/Week Comments Yes 0 [...] on file documented as of this encounter Last Filed Vital Signs Vital Sign Reading Time Taken Comments Blood Pressure 112/68 06/03/2023 11:31 AM EDT Pulse 55 06/03/2023 11:31 AM EDT Temperature - - Respiratory Rate 16 06/03/2023 11:31 AM EDT Oxygen Saturation 97% 06/03/2023 11:31 AM EDT Inhaled Oxygen Concentration - - Weight 77.8 kg (171 lb 7 oz) 06/03/2023 11:31 AM EDT Height 175.3 cm (5' 9") 06/03/2023 11:31 AM EDT Body Mass Index 25.32 06/03/2023 11:31 AM EDT documented in this encounter Patient Instructions * Patient Instructions* Sybil Mondragon LPN - 06/03/2023 11:34 AM EDT ~~PATIENT INSTRUCTIONS FOR Td VACCINE~~ Possible side effects of Td vaccine, (tetanus shot), are usually mild and can include: 1. Soreness or redness at injection site 2. Low grade fever 3. Body aches You may use a fever / pain reducing medication as needed for these symptoms. LET YOUR DOCTOR KNOW IMMEDIATELY IF YOU HAVE DIFFICULTY BREATHING OR SWALLOWING, EXPERIENCE ITCHINGOF FEET OR HANDS, HAVE SWELLING OF EYES, FACE OR INSIDE OF NOSE. documented in this encounter Progress Notes * Pool Galvan MD - 06/03/2023 1:28 PM EDT SUBJECTIVE: Rachel Anderson is a 68 year old female here for Physical-Exam (Yearly physical) and Immunizations . Ere for CPE. Patient had a fall about 3 months ago where she came down hard on her palms of her hands. In a grassy area. She is had some soreness on the base of her hands since then. No snuffbox tenderness on exam. No redness. Still sore most days worse with gripping and twisting. She also complains of some pain at the base of her left 2nd and 3rd toes. She ended up not taking restless legs prescription she just decided she did not want to take any new medicines. She notes that her restless leg symptoms do seem to be worse with having them up at night before she goes to bed. Sensation is like a squeezing tight sensation intermittent. Feels like she has to move her legs. Sometimes can bother her through the night. Had her flu and COVID shots. No fever, chills, chest pain, shortness of breath, headache, nausea, vomit, diarrhea, constipation or vision changes ROS: Negative except above. Past Medical History: Diagnosis Date Asthma, mild intermittent 12/11/2019 B12 deficiency 11/23/2020 Gluten intolerance History of 2019 novel coronavirus disease (COVID-19) 01/02/2022 Irritable bowel syndrome 04/15/2002 Lactose intolerance Primary osteoarthritis of both hands 05/17/2015 Reflux esophagitis Past Surgical History: Procedure Laterality Date DELIVERY x 2 COLONOSCOPY 09/02/2006 Dr. Meade, [facility] COLONOSCOPY 2017 COLONOSCOPY, DIAGNOSTIC (RECTUM) 11/26/2022 diverticulosis, repeat 5 yrs / COLONOSCOPY FLEXIBLE PROXIMAL DIAGNOSTIC performed by Irvin Russ MD at ENDOSCOPY [facility] EGD, FLEXIBLE, DIAGNOSTIC 11/26/2022 Barretts, reflux esophagitis, hiatal hernia, repeat 1 yr / ESOPHAGOGASTRODUODENOSCOPY (EGD), FLEXIBLE, TRANSORAL, DIAGNOSTIC performed by Irvin Russ MD at ENDOSCOPY [facility] REMOVE TONSILS & ADENOIDS, UNDER 12 Social History Socioeconomic History Marital status: Spouse name: Ricardo Number of children: 2 Years of education: Not on file Highest education level: Not on file Occupational History 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 no binge Drug use: No Sexual activity: Yes Partners: Male Comment: . 2 adult daughters. Menses stopped at 51 Other Topics Concern Not on file Social History Narrative Likes-travel, walk, outdoors. Daughter Korin moved to [facility] w/her GF '22. Social Determinants of Health Financial Resource Strain: Not on file Food Insecurity: No Food Insecurity Worried About Running Out of Food in the Last Year: Never true Ran Out of Food in the Last Year: Never true Transportation Needs: Not on file Physical Activity: Not on file Stress: Not on file Social Connections: Not on file Intimate Partner Violence: Not on file Housing Stability: Not on file Family History Problem Relation Age of Onset Cancer Mother 76 unsure type. ?lung- Cancer Father 45 pancreas Other (heart--unsure?) Brother Cancer Aunt (Unspecified) [id number] No Past Hx Daughter x2 No Past Hx Brother x5 Other (Other) Brother no hx of skin cancer for pt parents Current Outpatient Medications Medication Sig Dispense Refill Cholecalciferol (VITAMIN D3) 250 MCG (48388 UT) Capsule Take 1 Capsule by mouth in the morning. Turmeric 500 MG Oral Tablet Take by mouth. Xiidra 5 % Ophthalmic Solution (Lifitegrast) Instill into eye. Acetaminophen ER 650 MG Oral Tablet Extended Release Take 1 Tablet by mouth every 8 hours as needed. B Complex-C Oral Tablet (Therapeutic B Complex w/C) Take 1 Tablet by mouth in the morning. Vitamin B-12 5000 MCG Sublingual Tablet Sublingual 1 tab daily 1 Tab 0 Premarin 0.625 MG/GM Vaginal Cream (Estrogens Conjugated) Administer 0.5 g into the vagina at bedtime. Twice a week as directed. 42.5 g 5 Triamcinolone Acetonide 0.5 % External Cream (Aristocort) Apply topically to affected area 2 times a day. To affected area. 20 g 5 Inlqkgg-Faoxyp-Dwfcu Pertussis 5-2.5-18.5 LF-MCG/0.5 Suspension Prefilled Syringe (Boostrix) Inject0.5 mL into a large muscle once for 1 dose. As directed 0.5 mL 0 No current facility-administered medications for this visit. Physical: BP 112/68 | Pulse 55 | Resp 16 | Ht 1.753 m (5' 9") | Wt 77.8 kg (171 lb 7 oz) | SpO2 97% | BMI 25.32 kg/m | BSA 1.95 m General-No apparent Distress Head, Eyes, Ears, Nose, Throat--Normocephalic, atraumatic Neck-Supple Lymph-no lymphadenopathy Lungs-Clear to Auscultation bilaterally Cardiovascular--Regular rate & Rhythm, +s1, s2, no murmur Abdomen-soft, nontender, nondistended + bowel sounds Extremities--no edema Mskel minimal tender base of palm. No snuffbox tender. Pain with rotation wrist. No masses base of left toes. No redness Neuro-alert & oriented x3 (Z00.00) Well adult exam (primary encounter diagnosis) Plan: counseled on diet/exercise Repeat upper endoscopy November 2023 Colon UTD Mammo UTD Needs Shingrix- (had Zostavax in past) + RSV--she will get outside pharmacy (Z23) Need for prophylactic vaccination with tetanus-diphtheria (Td) Plan: Dvkrybq-Enrdys-Tubbq Pertussis 5-2.5-18.5 LF-MCG/0.5 Suspension Prefilled Syringe (Boostrix) (M25.531) Right wrist pain Plan: XR HAND 3 OR MORE VIEWS Consider Ortho if not improving (K22.70, K20.90) Ariza's esophagus with esophagitis Plan: UPPER ENDOSCOPY GI REFERRAL OP Finished 4-5 mos PPI. Some GERD symptoms. Wants to stay off preventive meds. (Z13.220) Lipid screening Plan: LIPID PANEL WITH DIRECT LDL IF TG IS HIGH (M21.41, M21.42) Pes planus of both feet Plan: f/u Marielos Angel (E53.8) B12 deficiency Plan: VITAMIN B12 (J45.20) Mild intermittent asthma without complication Plan: doing ok. (This note was completed using the dictation program Fluency Direct. As such, there may be misspellings, word substitutions, or other variations that should not change the essence of the clinical content of this encounter note.If there is need for further clarification, please direct questions to the provider listed above.) Pool Galvan MD * Sybil Mondragon LPN - 06/03/2023 11:34 AM EDT TD covered under Medicare Part D, prescription order pended for physician to sign. Sybil Mondragon LPN documented in this encounter Nursing Notes * Sybil Mondragon LPN - 06/03/2023 11:31 AM EDT The patient has been properly identified by confirmation of name and date of . Chief Complaint Patient presents with Physical-Exam Yearly physical documented in this encounter Plan of Treatment Pending Results Name Type Priority Associated Diagnoses Date /Time XR HAND 3 OR MORE VIEWS Medical Imaging Routine Right wrist pain 06/03/2023 12:26 PM EDT LIPID PANEL WITH DIRECT LDL IF TG IS HIGH Lab Routine Lipid screening 06/03/2023 12:42 PM EDT VITAMIN B12 Lab Routine B12 deficiency 06/03/2023 12:42 PM EDT Scheduled Orders Name Type Priority Associated Diagnoses Orde r Schedule LIPID PANEL WITH DIRECT LDL IF TG IS HIGH Lab Routine Lipid screening Expected: 06/03/2023, Expires: 06/03/2024 VITAMIN B12 Lab Routine B12 deficiency Expected: 06/03/2023 (Approximate), Expires: 06/02/2024 Scheduled Procedures Name Priority Associated Diagnoses Date/Ti nm ESOPHAGOGASTRODUODENOSCOPY ( EGD), FLEXIBLE, TRANSORAL, DIAGNOSTIC Recall Ariza's esophagus COLONOSCOPY FLEXIBLE PROXIMAL DIAGNOSTIC Recall History of colon polyps Scheduled Referrals Name Type Priority Associated Diagnoses Orde r Schedule UPPER ENDOSCOPY GI REFERRAL OP Referral Within 30 days (routine) Ariza's esophagus with esophagitis Ordered: 06/03/2023 Health Maintenance Due Date Last Done Comments [...] as of this encounter Visit Diagnoses Diagnosis Well adult exam- Primary Routine general medical examination at a health care facility Need for prophylactic vaccination with tetanus-diphtheria (Td) Right wrist pain Pain in joint, forearm Ariza's esophagus with esophagitis Ariza's esophagus Lipid screening Screening for lipoid disorders Pes planus of both feet B12 deficiency Other B-complex deficiencies Mild intermittent asthma without complication Unspecified asthma documented in this encounter Care Teams Twenty One Dealer Relationship Specialty Start Date End Date Pool Galvan MD [address] [place] [address] PCP - General Family Medicine 10/11/14 documented as of this encounter
--- OUTSIDE RECORDS SUMMARY | 2023-10-30 06:28 | External Medical Summary | Summary of Care ---
Author Name Unknown Organization [facility] Address [address] [place] [address] Phone [phone] Care Team Providers Care Associate Theatre Professor Name Role Phone Pool Galvan MD Primary Care Provider + Reason for Visit * Reason Comments eRx-Medication Refill Encounter Details Date Type Department Care Team (Late st Contact Info) Description 07/04/2023 Refill Gastroenterology, [facility] [address] [place] [address] [facility] [place] [address] Allergies Active Allergy Reactions Criticality Noted Date Comments Gluten Meal 11/23/2020 sensitivity - Lactose 06/11/2014 Soy Allergy 06/11/2014 Camphor 11/23/2020 documented as of this encounter (statuses as of 07/05/2023) Medications Medication Sig Dispensed Refills Start Date End Date Status Cholecalciferol (VITAMIN D3) 250 MCG (74015 UT) Capsule Take 1 Capsule by mouth [...] as of this encounter (statuses as of 07/05/2023) Active Problems Problem Noted Date Diagnosed Date Ariza's esophagus with esophagitis 01/02/2023 Overview: LA grade A 11/26/22 History of 2019 novel coronavirus disease (COVID -19) 01/02/2022 Gluten intolerance 11/23/2020 Overview: 2019 TTG WNL. Skin, energy improved off it. B12 deficiency 11/23/2020 Neuropathy 05/26/2020 Right sacral radiculopathy 05/16/2020 Lumbar degenerative disc disease 05/16/2020 Primary osteoarthritis of both feet 05/16/2020 Flat foot 05/16/2020 Bilateral carpal tunnel syndrome 05/16/2020 Asthma, mild intermittent 12/11/2019 Well adult exam 12/04/2017 Overview: 12/16 colon--WNL silva 4y. EGD +esophagitis. Barretts signed. 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 Silva 4y. 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 Primary osteoarthritis of both hands 05/17/2015 VERTIGO (DYSEQUILIBRIUM) 06/04/2011 GERD (gastroesophageal reflux disease) 2 Overview: EGD 11/2022 path - esophagitis, inflammation and metaplasia, repeat EGD 2023 Irritable bowel syndrome 04/15/2002 Rosacea 10/28/2000 Other allergic rhinitis Overview: ICD-10 update of inactive term Lactose intolerance documented as of this encounter (statuses as of 07/05/2023) Resolved Problems Problem Noted Date Diagnosed Date Resolved Date Viral wart on finger 05/17/2015 017 Influenza with respiratory m anifestation other than pneumonia 09/20/2012 11/23/2012 Routine general medical exam ination at a health care facility 04/18/2012 08/15/2017 Overview: s/p transplant. Pt needs yearly FLU shots. I see her daughter 03/11 [facility]--5mm polyp path Tubular adenoma. Silva 4y 11/07 mammo WNL [facility] 07/09 stress echo WNL. Mild MR 03/05, 07/04, 04/02 pap WNL outside-scanned 03/30 DEXA @[facility] borderline osteopenia T-1.0 Lumbar Abnormal mammogram 04/15/2012 2 Overview: 04/06-Mammo@ [facility]_left breast-US WNl. Repeat 1Y mammo. Impacted cerumen 06/04/2011 05/17/2015 Chronic otitis externa 06/04/201105/17 Other specified forms of hearing loss 06/04/2011 05/17/2015 FAMILY HX-GI MALIGNANCY- aunt and uncle 10/28/2000 05/17/2015 Reflux esophagitis 9 documented as of this encounter (statuses as of 07/05/2023) Immunizations Name Administration Dates Next Due COVID-19 mRNA, LNP-s, No Pre serve, 2-Dose Series (Moderna) 05/29/2021,10/29/2020,09/24/2020 COVID-19, LNP-s, No Preserve , Joseph-sucrose, Ages 12+ (Pfizer) 03/14/2022 COVID-19, MRNA-LNP, 23-24, P F, 50 MCG/0.5 mL, 12 YRS AND ABOVE, IM (MODERNA-Spikevax) 05/11/2023 Pneumococcal Conjugate Vacc, 13 Valent (Prevnar) 10/06/2019 Pneumococcal Polysaccharide PPV23 (Pneumovax) 06/01/2022 SEASONAL INFLUENZA, PF, 6 M & Above, IM , (FLULAVAL or FLUZONE) 05/26/2020,06/12/2018,08/06/2017 Season Influenza, Quad, PF, Adjuvanted, 65+ Yrs, IM (FLUAD) 05/11/2023 Seasonal Influenza, Quadriva lent Hd (Fluzone Hd) [...] pur e alcohol) occasional social. no binge PHQ-2 Answer Date Recorded PHQ Adult Total Score 0 06/03/2023 Hunger Vital Sign Answer Date Recorded Within the past 12 months, y ou worried that your food would run out before you got the money to buy more. Never true 04/30/20 23 Within the past 12 months, t he food you bought just didn't last and you didn't have money to get more. Never true 04/30/2023 Sex and Gender Information Value Date Recorded Sex Assigned at Female 10/06/2019 12:45 PM EST Gender Identity Female 10/06/2019 12:45 PM EST Sexual Orientation Straight 06/03/2023 11 :37 AM EDT Sexual Orientation Choose not to disclose 2022 11:37 AM EDT Job Start Date Occupation Industry Not on file Not on file Not on file documented as of this encounter Miscellaneous Notes * Telephone Encounter - Marilu Serrano RN - 07/05/2023 9:34 AM ESTRefused Prescriptions: Disp Refills Omeprazole 20 MG Oral Capsule Delayed Rele*90 Cap*1 Sig: TAKE 1CAPSULE BY MOUTH EVERY MORNINGRefused By: Matthew SERRANO for Refusal: Appt. Required, please call patientReason for Refusal Comment: has not been seen since ; 2020 * Telephone Encounter - Marilu Serrano RN - 07/05/2023 9:33 AM EST LMOM has not been seen since 2020 by GI . If still taking / needs script from us would need an apptor reach to to pcp * Telephone Encounter - Rosmery Ordoñez CPhT - 07/04/2023 3:17 PM ESTPending Prescriptions: Disp Refills Omeprazole 20 MG Oral Capsule Delayed Rele*90 Cap*1 Sig: TAKE 1 CAPSULE BY MOUTH EVERY MORNING * Telephone Encounter - Rosmery Ordoñez CPhT - 07/04/2023 3:16 PM EST Pharmacy requesting refills for Omeprazole 20 MG Oral Capsule Delayed Release (PriLOSEC) . Upon chart review, medication is listed as discontinued, with discontinuation reason as "medication list clean up". Please advise if you wish to continue this therapy for the patient. Thank you, Nimo [employer]do[employer] Guidance Counselor III [facility] 07/04/2023,3:17 PM documented in this encounter Plan of Treatment Scheduled Procedures Name Priority Associated Diagnoses Date/Ti me ESOPHAGOGASTRODUODENOSCOPY ( EGD), FLEXIBLE, TRANSORAL, DIAGNOSTIC Recall Ariza's esophagus COLONOSCOPY FLEXIBLE PROXIMAL DIAGNOSTIC Recall History of colon polyps Health Maintenance Due Date Last Done Comments Zoster Vaccines (2 of 3) 04/29/2015 03/04/2015 Mammogram 11/30/2023 11/29/2022, 10/26, 11/22/2020, Additional history exists Depression Screening 06/03/2024 06/03/2023 Diabetes Screening 10/31/2025 10/31/2022, 0 05/25/2021, 05/16/2020, Additional history exists Ariza's Esophagus Surveilance 11/26/2025 11/26/2022 DXA Scan 11/03/2026 11/04/2019, 09/11/2007 COLONOSCOPY-EVERY 5 YRS AGES 18-100 11/27/2027 11/26/2022, 11/26/2022, 03/26/2017 Lipid Panel 06/03/2028 06/03/2023, 11/25, 12/16/2017, Additional history exists DTaP,Tdap,and Td Vaccines (3 - Td or [...] filedocumented as of this encounter Care Teams Associate Theatre Professor Relationship Specialty Start Date End Date Pool Galvan MD [address] [place] [address] PCP - General Family Medicine 10/11/14 documented as of this encounter
--- OUTSIDE RECORDS SUMMARY | 2023-10-30 06:28 | External Medical Summary | Summary of Care ---
Author Name Unknown Organization [facility] Address [address] [place] [address] Phone [phone] Care Team Providers Care Saddle Lining Stitcher Name Role Phone Pool Galvan MD Primary Care Provider + Reason for Visit * Reason Comments Urinary Tract Infection Symptoms Encounter Details Date Type Department Care Team ([facility] st Contact Info) Description 10/20/2023 5:00 PM [facility] [address] [place] [id number] Mike Martinez PA-C [address] [place] [address] UTI symptoms* Allergies Active Allergy Reactions Criticality Noted Date Comments Gluten Meal 11/23/2020 sensitivity - Lactose 06/11/2014 Soy Allergy 06/11/2014 Camphor 11/23/2020 documented as of this encounter (statuses as of 10/20/2023) Medications Medication Sig Dispensed Refills Start Date End Date Status Cholecalciferol (VITAMIN D3) 250 MCG (91354 UT) Capsule Take 1 Capsule by mouth [...] Active Vitamin B-12 5000 MCG Sublingual Tablet SublingualIndicati ons:B12 deficiency 1 tab daily 1 Tab 0 05/30/2021 Active Premarin 0.625 MG/GM Vaginal Cream (Estrogens Conjugated)Indicat ions:Dysuria Administer 0.5 g into the vagina at bedtime. Twice a week as directed. 42.5 g 5 04/30/2023 Active Triamcinolone Acetonide 0.5 % External Cream (Aristocort)Indica tions:Dyshidrotic eczema Apply topically to affected area 2 times a day. To affected area. 20 g 5 04/30/2023 Active Nitrofurantoin Monohyd Macro 100 MG Oral Capsule (Macrobid)Indicati ons:UTI symptoms Take 1 Capsule by mouth in the morning and 1 Capsule before bedtime. Do all this for 7 days. With food until gone. 14 Capsule 0 10/20/2023 10/27/2023 Active documented as of this encounter (statuses as of 10/20/2023) Active Problems Problem Noted Date Diagnosed Date [...] as of this encounter (statuses as of 10/20/2023) Resolved Problems Problem Noted Date Diagnosed Date Resolved Date Viral wart on finger 05/17/2015 017 Influenza with respiratory m anifestation other than pneumonia 09/20/2012 11/23/2012 Routine general medical exam ination at a health care facility 04/18/2012 08/15/2017 Overview: s/p transplant. Pt needs yearly FLU shots. I see her daughter 03/11 [facility]--5mm polyp path Tubular adenoma. Silva 5y 11/07 mammo WNL [facility] 07/09 stress echo WNL. Mild MR 03/05, 07/04, 04/02 pap WNL outside-scanned 03/30 DEXA @[facility] borderline osteopenia T-1.0 Lumbar Abnormal mammogram 04/15/2012 2 Overview: 04/06-Mammo@ [facility]_left breast-US WNl. Repeat 1Y mammo. Impacted cerumen 06/04/2011 05/17/2015 Chronic otitis externa 06/04/201105/17 Other specified forms of hearing loss 06/04/2011 05/17/2015 FAMILY HX-GI MALIGNANCY- aunt and uncle 10/28/2000 05/17/2015 Reflux esophagitis 9 documented as of this encounter (statuses as of 10/20/2023) Immunizations Name Administration Dates Next Due COVID-19 mRNA, LNP-s, No Pre serve, 2-Dose Series (Moderna) 05/29/2021,10/29/2020,09/24/2020 COVID-19, LNP-s, No Preserve , Joseph-sucrose, Ages 12+ (Pfizer) 03/14/2022 COVID-19, MRNA-LNP, 23-24, P F, 50 MCG/0.5 mL, 12 YRS AND ABOVE, IM (MODERNA-Spikevax) 05/11/2023 Pneumococcal Conjugate Vacc, 13 Valent (Prevnar) 10/06/2019 Pneumococcal Polysaccharide PPV23 (Pneumovax) 06/01/2022 Season Influenza, Quad, PF, Adjuvanted, 65+ Yrs, IM (FLUAD) 05/11/2023 Seasonal Influenza, PF, 6 M & above, IM , (FluLaval or Fluzone) 05/26/2020,06/12/2018,08/06/2017 Seasonal Influenza, Quadriva lent Hd (Fluzone [...] on file documented as of this encounter Progress Notes * Mike Martinez PA-C - 10/20/2023 4:55 PM EST Subjective Rachel Anderson is a 68 year old female. Chief Complaint Patient presents with Urinary Tract Infection Symptoms HPI: Patient location: HOME. I was not in a hospital or clinic location. After connecting through [email or web address], patient was verified with two unique identifiers. Patient (or authorized legal termite control service representative) was then informed that this was a Telemedicine visit and being conducted confidentially over secure lines. Methods to assure confidentiality were taken. Patient acknowledged consent and understanding of privacy and security of the Telemedicine visit. The patient agreed to participate. Rachel presents with urinary symptoms starting last night. Urinary frequency, urgency and dysuria Bladder area pressure and discomfort. 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 Well adult exam Z00.00 Asthma, mild intermittent J45.20 Right sacral radiculopathy M54.18 Lumbar degenerative disc disease M51.36 Primary osteoarthritis of both feet M19.071, M19.072 Flat foot M21.40 Bilateral carpal tunnel syndrome G56.03 Neuropathy G62.9 Gluten intolerance K90.41 B12 deficiency E53.8 Lactose intolerance E73.9 History of 2019 novel coronavirus disease (COVID-19) Z86.16 Ariza's esophagus with esophagitis K22.70, K20.90 Current Outpatient Medications Medication Sig Dispense Refill Nitrofurantoin Monohyd Macro 100 MG Oral Capsule (Macrobid) Take 1 Capsule by mouth in the morning and 1 Capsule before bedtime. Do all this for 7 days. With food until gone. 14 Capsule 0 Cholecalciferol (VITAMIN D3) 250 MCG (24254 UT) Capsule Take 1 Capsule by mouth [...] day. To affected area. 20 g 5 No current facility-administered medications for this visit. Past Medical History: Diagnosis Date Asthma, mild intermittent 12/11/2019 B12 deficiency 11/23/2020 Gluten intolerance History of 2019 novel coronavirus disease (COVID-19) 01/02/2022 Irritable bowel syndrome 04/15/2002 Lactose intolerance Primary osteoarthritis of both hands 05/17/2015 Reflux esophagitis Past Surgical History: Procedure Laterality Date DELIVERY x 2 COLONOSCOPY 09/02/2006 Dr. Meade, WNL COLONOSCOPY 2017 COLONOSCOPY, DIAGNOSTIC (RECTUM) 11/26/2022 diverticulosis, repeat 5 yrs / COLONOSCOPY FLEXIBLE PROXIMAL DIAGNOSTIC performed by Irvin Russ MD at [facility] EGD, FLEXIBLE, DIAGNOSTIC 11/26/2022 Barretts, reflux esophagitis, hiatal hernia, repeat 1 yr / ESOPHAGOGASTRODUODENOSCOPY (EGD), FLEXIBLE, TRANSORAL, DIAGNOSTIC performed by Irvin Russ MD at [facility]COPY [facility] REMOVE TONSILS & ADENOIDS, UNDER 12 Review of patient's allergies indicates: Allergen Reactions Gluten Meal sensitivity - Lactose Soy Allergy Wheat Germ [Camphor] Family History Problem Relation Age of Onset Cancer Mother 76 unsure type. 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 [place] [facility] [place]. Social Determinants of Health Financial Resource Strain: Not on file Food Insecurity: No Food Insecurity (04/30/2023) Hunger Vital Sign Worried About Running Out of Food in the Last Year: Never true Ran Out of Food in the Last Year: Never true Transportation Needs: Not on file Physical Activity: Not on file Stress: Not on file Social Connections: Not on file Intimate Partner Violence: Not on file Housing Stability: Not on file Review of Systems Constitutional: Negative for fever. Respiratory: Negative for shortness of breath and wheezing. Cardiovascular: Negative for chest pain. Gastrointestinal: Negative for nausea and vomiting. Genitourinary: Positive for dysuria, frequency and urgency. Negative for flank pain and hematuria. Objective There were no vitals taken for this visit. Physical Exam Constitutional: Appearance: Normal appearance. She is not toxic-appearing. Eyes: General: Right eye: No discharge. Left eye: No discharge. Conjunctiva/sclera: Conjunctivae normal. Pulmonary: Effort: Pulmonary effort is normal. No respiratory distress. Abdominal: Tenderness: There is no right CVA tenderness or left CVA tenderness. Neurological: Mental Status: She is alert. Psychiatric: Mood and Affect: Mood normal. Behavior: Behavior normal. ASSESSMENT/PLAN: UTI symptoms (Primary) - Nitrofurantoin Monohyd Macro 100 MG Oral Capsule (Macrobid); Take 1 Capsule by mouth in the morning and 1 Capsule before bedtime. Do all this for 7 days. With food until gone. Discussed with patient. Offered to send for urine collection Declined. Requests empiric treatment Encourage oral fluids, void often Will need to be seen in clinic if failure to improve or worsening Mike Martinez PA-C documented in this encounter Plan of Treatment [...] Additional history exists Ariza's Esophagus Surveilance 11/26/2025 11/26/2022, 11/26/2022 DXA Scan 11/03/2026 11/04/2019, 09/11/2007 COLONOSCOPY-EVERY [...] as of this encounter Visit Diagnoses Diagnosis UTI symptoms- Primary Other symptoms involving urinary system documented in this encounter Care Teams Saddle Lining Stitcher Relationship Specialty Start Date End Date Pool Galvan MD [address] [place] [address] PCP - General Family Medicine 10/11/14 documented as of this encounter
--- OUTSIDE RECORDS SUMMARY | 2023-10-30 06:28 | External Medical Summary | Summary of Care ---
Author Name Unknown Organization [facility] Address [address] [place] [address] Phone [phone] Care Team Providers Care Cartridge Loader Name Role Phone Pool Galvan MD Primary Care Provider + Reason for Visit * Reason Comments Acute Patient fell on her left side last week while hiking. 3 days later she developed sharp pain under left breast that wraps around to her left mid back. Pain is getting worse instead of better. She denies any bruising or swelling. Noticing more difficulties breathing x 3 months, would like ProAir refilled. Encounter Details Date Type Department Care Team Description 06/14/2023 Office Visit Family Practice [facility] [address] [facility] [place] [address] Kathi Pulido MD [address] [facility] [place] [address] Intercostal pain* Allergies Active Allergy Reactions Severity Noted Date Comments Gluten Meal 11/23/2020 sensitivity - Lactose 06/11/2014 Soy Allergy 06/11/2014 Camphor 11/23/2020 documented as of this encounter (statuses as of 06/14/2023) Medications Medication Sig Dispensed Refills Start Date End Date Status Cholecalciferol (VITAMIN D3) 250 MCG (82579 UT) Capsule Take 1 Capsule by mouth [...] as of this encounter (statuses as of 06/14/2023) Active Problems Problem Noted Date Ariza's esophagus [...] as of this encounter (statuses as of 06/14/2023) Resolved Problems Problem Noted Date Resolved Date Viral wart on finger 05/17/2015 08/15/2017 Influenza with respiratory m anifestation other than pneumonia 09/20/2012 11/23/2012 Routine general medical exam ination at a health care facility 04/18/2012 08/15/2017 Overview: s/p transplant. Pt needs yearly FLU shots. I see her daughter 03/11 colon @[facility]--5mm polyp path Tubular adenoma. Silva 5y 11/07 mammo WNL [facility] 07/09 stress echo WNL. Mild MR 03/05, 07/04, 04/02 pap WNL outside-scanned 03/30 DEXA @[facility] borderline osteopenia T-1.0 Lumbar Abnormal mammogram 04/15/2012 04/18/2012 Overview: 04/06-Mammo@ [facility]_left breast-US WNl. Repeat 1Y mammo. Impacted cerumen 06/04/2011 05/17/2015 Chronic otitis externa 06/04/2011 5 Other specified forms of hearing loss 06/04/2011 05/17/2015 FAMILY HX-GI MALIGNANCY- aunt and uncle 10/29/1905/17/2015 Reflux esophagitis 07/29/2019 documented as of this encounter (statuses as of 06/14/2023) Immunizations Name Administration Dates Next Due COVID-19 mRNA, LNP-s, No Pre serve, 2-Dose Series (Moderna) 05/29/2021,10/29/2020,09/24/2020 COVID-19, LNP-s, No Preserve , Joseph-sucrose, Ages 12+ (ActiveO) 03/14/2022 COVID-19, MRNA-LNP, 23-24, P F, 50 [...] Sign Reading Time Taken Comments Blood Pressure 110/64 06/14/2023 2:01 PM EDT Pulse 67 06/14/2023 2:01 PM EDT Temperature 36.4 C (97.5 F) 06/14/2023 2:01 PM ED T Respiratory Rate - - Oxygen Saturation 97% 06/14/2023 2:01 PM EDT Inhaled Oxygen Concentration - - Weight 78.8 kg (173 lb 12.8 oz) 06/14/2023 2:01 PM EDT Height - - Body Mass Index 25.67 06/03/2023 11:31 AM EDT documented in this encounter Progress Notes * Kathi Pulido MD - 06/14/2023 2:32 PM EDT Images from the original note were not included. History of Present Illness Rachel Anderson is a 68 year old female that presents for Acute (Patient fell on her left side last week while hiking. 3 days later she developed sharp pain under left breast that wraps around to her left mid back. Pain is getting worse instead of better. She denies any bruising or swelling. Noticingmore difficulties breathing x 3 months, would like ProAir refilled.) Was hiking and turned to look at something, tripped on a rock or route. Most of the fall was on lateral left knee and a small bump on left protestant. Caught self with both hands. Did not have any pain on lateral chest. Was able to complete the hike. Couple days later developed pain in a wide band fromspine around front to sternum. No rash. No bruising. Tylenol helped. A bit better today. ProAir is for intermittent shortness of breath that she experiences, mostly when life is stressful or anxiety is high. Has been like this since she was a child. Typically she can take a big stretch and a big breath and shortness of breath resolves. Not sure the albuterol has helped. Has noticed some postnasal drip recently, but otherwise no sneezing, runny or stuffy nose, itchy watery eyes or other allergy symptoms. medication and allergy list reviewed Past medical history and problem list reviewed Physical Exam Vitals: 06/14/23 1401 Temp: 36.4 C (97.5 F) Pulse: 67 SpO2: 97% BP: 110/64 Physical Exam Vitals and nursing note reviewed. Constitutional: Appearance: Normal appearance. She is not ill-appearing. Cardiovascular: Rate and Rhythm: Normal rate and regular rhythm. Heart sounds: No murmur heard. Comments: No rash on torso, no bruising. Mild tenderness to palpation several ribs from back to front. No pain with big breaths. Pulmonary: Effort: Pulmonary effort is normal. Breath sounds: Normal breath sounds. Neurological: Mental Status: She is alert. I have reviewed the following results: EGD report, Lipid Panel, and BMP Assessment and Plan Intercostal pain Likely musculoskeletal strain from twisting to catch herself as she fell. No evidence of bruising, fracture or shingles rash. Reassurance provided, recommend OTC analgesia, heat, activity as tolerated. Will likely resolve within a few weeks. Discussed that breathing symptoms are likely a manifestation of her increased stress recently. Has a few friends that are going through serious and medical diagnoses and has been supporting them. Usually manages with meditation, yoga & journaling. Wrap-Up Time: I spent a total of 20-29 minutes (exact time 25 mins) on the date of service in preparation, delivery, and documentation of the care provided to Rachel Anderson excluding any time spent in the performance of separately billed services. documented in this encounter Plan of Treatment [...] as of this encounter Visit Diagnoses Diagnosis Intercostal pain- Primary Other chest pain documented in this encounter Care Teams Cartridge Loader Relationship Specialty Start Date End Date Pool Galvan MD [address] [place] [address] PCP - General Family Medicine 10/11/14 documented as of this encounter
--- OUTSIDE RECORDS SUMMARY | 2023-10-30 06:28 | External Medical Summary ---
Author Name Unknown Address Unknown Organization [id number]:LABORATORY [facility] [place] - [address] [place] [address] Laboratory Report Ordering Provider Test Date Status VIJAY TORRES 06/03/2023 12:42:07 Final Observation Date Value Abnormality Reference (Units ) Status Vitamin B12 06/03/2023 12:42:07 515 [id number] (pg/mL) Final Performing Location LABORATORY [facility] - [address] [place] [address]
--- OUTSIDE RECORDS SUMMARY | 2023-10-30 06:28 | External Medical Summary ---
Author Name Unknown Address Unknown Organization [id number]:LAB[facility]ATORY [facility] [place] - [address] [facility] [place] [address] Laboratory Report Ordering Provider Test Date Status VIJAY TORRES 06/03/2023 12:42:07 Final Observation Date Value Abnormality Reference (Units ) Status Triglyceride 06/03/2023 12:42:07 92 <=174 ( mg/dL) Final Triglyceride Reference Range s (mg/dL):
<150 Acceptable
150-174 Borderline high
175-499 High
>=500 Very high Cholesterol 06/03/2023 12:42:07 151 <200 (mg /dL) Final Total Cholesterol Reference Ranges (mg/dL):
<200 Desirable
200-239 Borderline high
>=240 High HDL 06/03/2023 12:42:07 66 >49 (mg/dL ) Final HDL Cholesterol Reference Ra nges (mg/dL):
>=60 High (Desirable)
<50 Low (Undesirable) For Females
<40 Low (Undesirable) For Males NON-HDL CHOLESTEROL 06/03/2023 12:42:07 85 <=159 (mg/dL) Final Non-HDL Cholesterol Referenc e Range (mg/dL):
<100 Target level for high risk ASCVD patient
<130 Optimal for general population
130-159 Near optimal for general population
160-189 Borderline High
190-219 High
>=220 Very High LDL, (calculated) 06/03/2023 12:42:07 67 <= 129 (mg/dL) Final LDL Cholesterol Reference Ra nges (mg/dL):
<70 Target level for high risk ASCVD patient
<100 Optimal for general population
100-129 Near optimal for general population
130-159 Borderline high
160-189 High
>=190 Very high Performing Location LABORATORY [facility] [place] - [address] [place] [address]
--- OUTSIDE RECORDS SUMMARY | 2023-10-30 06:29 | External Medical Summary | Summary of Care ---
Author Name Unknown Organization [facility] Address [address] [place] [address] Phone [phone] Care Team Providers Care Director Of Critical Care Name Role Phone Pool Galvan MD Primary Care Provider + Reason for Visit * Reason Comments Urinating Problems Culture came back sa jose that pt does not have UTI, feeling a little better, sl urgency and frequency, some abdominal pressure, urethra uncomfortable, has not had antibiotics. Also, luis around nose is peeling Encounter Details Date Type Department Care Team Description 04/30/2023 Office Visit Family Practice [facility] [address] [facility] [place] [address] Karyn Oliveira, [address] [facility] [address] Dysuria*; Dyshidrotic eczema Allergies Active Allergy Reactions Severity Noted Date Comments Gluten Meal 11/23/2020 sensitivity - Lactose 06/11/2014 Soy Allergy 06/11/2014 Camphor 11/23/2020 documented as of this encounter (statuses as of 05/09/2023) Medications Medication Sig Dispensed Refills Start Date End Date Status Cholecalciferol (VITAMIN D3) 250 MCG (52304 UT) Capsule Take 1 Capsule by mouth [...] Active Vitamin B-12 5000 MCG Sublingual Tablet SublingualIndicatio ns:B12 deficiency 1 tab daily 1 Tab 0 05/30/2021 Active Omeprazole 20 MG Oral Capsule Delayed Release (PriLOSEC) Take 1 Capsule by mouth in the morning. 90 Capsule 1 12/19/2022 Active Premarin 0.625 MG/GM Vaginal Cream (Estrogens Conjugated)Indicati ons:Dysuria Administer 0.5 g into the vagina at bedtime. Twice a week as directed. 42.5 g 5 04/30/2023 Active Triamcinolone Acetonide 0.5 % External Cream (Aristocort)Indicat ions:Dyshidrotic eczema Apply topically to affected area 2 times a day. To affected area. 20 g 5 04/30/2023 Active documented as of this encounter (statuses as of 05/09/2023) Active Problems Problem Noted Date Ariza's esophagus [...] Overview: 12/16 colon--WNL silva 5y. EGD +esophagitis. 06/14 EMG-very mild primarily sensory axonal polyneuropathy [...] as of this encounter (statuses as of 05/09/2023) Resolved Problems Problem Noted Date Resolved Date Viral wart on finger 05/17/2015 08/15/2017 Influenza with respiratory m anifestation other than pneumonia 09/20/2012 11/23/2012 Routine general medical exam ination at a health care facility 04/18/2012 08/15/2017 Overview: s/p transplant. Pt needs yearly FLU shots. I see her daughter 03/11 colon [facility]--5mm polyp path Tubular adenoma. Silva 5y 11/07 mammo WNL [facility] 07/09 stress echo WNL. Mild MR 03/05, 07/04, 04/02 pap WNL outside-scanned 03/30 DEXA @[facility] borderline osteopenia T-1.0 Lumbar Abnormal mammogram 04/15/2012 04/18/2012 Overview: 04/06-Mammo@ [facility]_left breast-US WNl. Repeat 1Y mammo. Impacted cerumen 06/04/2011 05/17/2015 Chronic otitis externa 06/04/2011 5 Other specified forms of hearing loss 06/04/2011 05/17/2015 FAMILY HX-GI MALIGNANCY- aunt and uncle 10/29/1905/17/2015 Reflux esophagitis 07/29/2019 documented as of this encounter (statuses as of 05/09/2023) Immunizations Name Administration Dates Next Due COVID-19 mRNA, LNP-s, No Pre serve, 2-Dose Series (Moderna) 05/29/2021,10/29/2020,09/24/2020 COVID-19, LNP-s, No Preserve , Joseph-sucrose, Ages 12+ (Pfizer) 03/14/2022 Pneumococcal Conjugate Vacc, 13 Valent (Prevnar) 10/06/2019 Pneumococcal Polysaccharide PPV23 (Pneumovax) 06/01/2022 Seasonal Influenza, PF, 6 mo ns & Above, IM , (Flulaval) 05/26/2020,06/12/2018,08/06/2017 Seasonal Influenza, Quadriva lent Hd (Fluzone Hd) 06/01/2022,07/03/2021 Seasonal Influenza, Quadriva lent, No Preserve, IM 05/21/2016 Seasonal Influenza, Split, I IV3, With Preserve, Inj 05/17/2015,06/11/2014,05/14/2011 Seasonal Influenza, Trivalen t, Adjuvanted, 65+ yrs 07/03/2019 TD - Tetanus/Diptheria (ADULT) 02/23/2007 TDAP (age 10 and older)(Boostrix) 04/21/2013 Varicella Zoster Vaccine (Adult) 03/04/2015 documented as [...] Sign Reading Time Taken Comments Blood Pressure 102/62 04/30/2023 5:04 PM EDT Pulse 76 04/30/2023 5:04 PM EDT Temperature 36.4 C (97.5 F) 04/30/2023 5:04 PM ED T Respiratory Rate 16 04/30/2023 5:04 PM EDT Oxygen Saturation - - Inhaled Oxygen Concentration - - Weight 77.6 kg (171 lb) 04/30/2023 5:04 PM EDT Height - - Body Mass Index 25.25 11/26/2022 11:01 AM EDT documented in this encounter Progress Notes * Karyn Oliveira DO - 04/30/2023 5:10 PM EDT Subjective: Rachel Anderson is a 67 year old female. Chief Complaint Patient presents with Urinating Problems Culture came back saying that pt does not have UTI, feeling a little better, sl urgency and frequency, some abdominal pressure, urethra uncomfortable, has not had antibiotics. Also, luis around nose is peeling HPI: Pt presents for follow up. Gave urine sample last week for suspected UTI. Cx showed no bacterial growth. Sx started 1 week ago. Sx include urinary urgency, frequency, pelvic pressure which is worse at night and general discomfort around the ureter. Just feels generally uncomfortable. Denies fever/chills, fatigue. Took azo x 1 day, sx improved somewhat. No new detergents, soaps, etc. Denies recurrent UTIs. Does notice similar sx after intercourse, also occasional bleeding after intercourse. PHM: Patient Active Problem List Diagnosis Code Rosacea [...] Dispense Refill Cholecalciferol (VITAMIN D3) 250 MCG (34799 UT) Capsule Take 1 Capsule by mouth in the morning. Turmeric 500 MG Oral Tablet Take by mouth. Xiidra 5 % Ophthalmic Solution (Lifitegrast) Instill into eye. B Complex-C Oral Tablet (Therapeutic B Complex w/C) Take 1 Tablet by mouth in the morning. Vitamin B-12 5000 MCG Sublingual Tablet Sublingual 1 tab daily 1 Tab 0 Omeprazole 20 MG Oral Capsule Delayed Release (PriLOSEC) Take 1 Capsule by mouth in the morning. 90Capsule 1 Acetaminophen ER 650 MG Oral Tablet Extended Release Take 1 Tablet by mouth every 8 hours as needed. (Patient not taking: Reported on 04/30/2023) No current facility-administered medications for this visit. Past Medical History: Diagnosis Date Asthma, mild intermittent 12/11/2019 B12 deficiency 11/23/2020 Gluten intolerance History of 2019 novel coronavirus disease (COVID-19) 01/02/2022 Irritable bowel syndrome 04/15/2002 Lactose intolerance Primary osteoarthritis of both hands 05/17/2015 Reflux esophagitis Past Surgical History: Procedure Laterality Date DELIVERY x 2 COLONOSCOPY 09/02/2006 Dr. Meade, WN COLONOSCOPY 2016 COLONOSCOPY, DIAGNOSTIC (RECTUM) 11/26/2022 diverticulosis, repeat 5 yrs / COLONOSCOPY FLEXIBLE PROXIMAL DIAGNOSTIC performed by Irvin Russ MD at ENDOSCOPY [facility] EGD, FLEXIBLE, DIAGNOSTIC 11/26/2022 Barretts, reflux esophagitis, hiatal hernia, repeat 1 yr / ESOPHAGOGASTRODUODENOSCOPY (EGD), FLEXIBLE, TRANSORAL, DIAGNOSTIC performed by Irvin Russ MD at ENDOSCOPY [facility] REMOVE TONSILS & ADENOIDS, UNDER 12 Review of patient's allergies indicates: Allergen Reactions Gluten Meal sensitivity - Lactose Soy Allergy Wheat Germ [Camphor] Objective: BP 102/62 (BP Site: Left Arm, BP Position: Sitting, BP Cuff Size: Regular) | Pulse 76 | Temp 36.4 C (97.5 F) (Tympanic) | Resp 16 | Wt 77.6 kg (171 lb) | BMI 25.25 kg/m | BSA 1.94 m Review of Systems: As per HPI, all other ROS neg. Physical Exam: General: alert, healthy, and no distress Heart: regular rate & rhythm, no murmur, and no gallops Lungs: chest symmetric with normal AP diameter, no chest deformities noted, no chest wall tenderness, lungs clear to auscultation Abdomen: abdomen soft, non-tender, normal bowel sounds, and no masses or organomegaly Dysuria (Primary) - Premarin 0.625 MG/GM Vaginal Cream (Estrogens Conjugated); Administer 0.5 g into the vagina at bedtime. Twice a week as directed. - URINALYSIS, REFLEX TO CULTURE (NOT FOR NEUTROPENIC PATIENTS); Future; Expected date: 04/30/2023 Dyshidrotic eczema - Triamcinolone Acetonide 0.5 % External Cream (Aristocort); Apply topically to affected area 2 times a day. To affected area. Follow up: as needed. Karyn Oliveira DO documented in this encounter Plan of Treatment Upcoming Encounters Date Type Specialty Care Team Description 06/03/2023 Office Visit Family Medicine Pool Galvan MD [address] [place] [address] Scheduled Orders Name Type Priority Associated Diagnoses Orde r Schedule URINALYSIS, REFLEX TO CULTURE (NOT FOR NEUTROPENIC PATIENTS) Lab Routine Dysuria Expected: 04/30/2023, Expires: 04/30/2024 Scheduled Procedures Name Priority Associated Diagnoses Date/Ti me ESOPHAGOGASTRODUODENOSCOPY ( EGD), FLEXIBLE, TRANSORAL, DIAGNOSTIC Recall Ariza's esophagus COLONOSCOPY FLEXIBLE PROXIMAL DIAGNOSTIC Recall History of colon polyps Health Maintenance Due Date Last Done Comments Zoster Vaccines (2 of 3) 04/29/2015 03/04/2015 Depression Screening 10/06/2020 10/06/2019 COVID-19 Vaccine (5 - Moderna series) 05/09/2022 03/14/2022, 05/29/2021, 10/29/2020, Additional history exists Lipid Panel 12/16/2022 12/16/2017, 11/25, 10/28/2012, Additional history exists DTaP,Tdap,and Td Vaccines (2 - Td or Tdap) 04/21/2023 04/21/2013, 02/23/2007, 07/29/1993 Influenza Vaccine (FLU shot) (#1) 2023 06/01/2022, 07/03/2021, 05/26/2020, Additional history exists Mammogram 11/30/2023 11/29/2022, 10/26, 11/22/2020, Additional history exists Diabetes Screening 10/31/2025 10/31/2022, 0 05/25/2021, 05/16/2020, Additional history exists DXA Scan 11/03/2026 11/04/2019, 09/11/2007 COLONOSCOPY-EVERY 5 YRS AGES 18-100 11/27/2027 11/26/2022, 11/26/2022, 03/26/2017 Pneumococcal Vaccine: 65+ Years Completed 06/01/2022, 10/06/2019 GARDASIL-HPV IMMUNIZATION SERIES Aged Out No longer [...] as of this encounter Visit Diagnoses Diagnosis Dysuria- Primary Dyshidrotic eczema Dyshidrosis documented in this encounter Care Teams Director Of Critical Care Relationship Specialty Start Date End Date Pool Galvan MD [address] [place] [address] PCP - General Family Medicine 10/11/14 documented as of this encounter"
--- OUTSIDE RECORDS SUMMARY | 2023-10-30 06:29 | External Medical Summary | Summary of Care ---
Author Name Unknown Organization [facility] Address [address] [place] [address] Phone [phone] Care Team Providers Care Insect Control Aide Name Role Phone Pool Galvan MD Primary Care Provider + Reason for Visit * Reason Onset Date Comments Advice 04/26/2023 Encounter Details Date Type Department Care Team Description 04/26/2023 Telephone Family Practice [facility] [address] [place] [address] Pool Galvan MD [address] [place] [address] Advice Allergies Active Allergy Reactions Severity Noted Date Comments Gluten Meal 11/23/2020 sensitivity - Lactose 06/11/2014 Soy Allergy 06/11/2014 Camphor 11/23/2020 documented as of this encounter (statuses as of 05/20/2023) Medications Medication Sig Dispensed Refills Start Date End Date Status Cholecalciferol (VITAMIN D3) 250 MCG (20779 UT) Capsule Take 1 Capsule by mouth [...] the morning. 90 Capsule 1 12/19/2022 Active documented as of this encounter (statuses as of 05/20/2023) Active Problems Problem Noted Date Ariza's esophagus [...] as of this encounter (statuses as of 05/20/2023) Resolved Problems Problem Noted Date Resolved Date Viral wart on finger 05/17/2015 08/15/2017 Influenza with respiratory m anifestation other than pneumonia 09/20/2012 11/23/2012 Routine general medical exam ination at a health care facility 04/18/2012 08/15/2017 Overview: s/p transplant. Pt needs yearly FLU shots. I see her daughter 03/11 [facility]--5mm polyp path Tubular adenoma. Silva 5y 11/07 mammo WNL [facility] 07/09 stress echo WNL. Mild MR 03/05, 07/04, 04/02 pap WNL outside-scanned 03/30 DEXA @[facility] borderline osteopenia T-1.0 Lumbar Abnormal mammogram 04/15/2012 04/18/2012 Overview: 04/06-Mammo@ [facility]_left breast-US [facility]Nl. Repeat 1Y mammo. Impacted cerumen 06/04/2011 05/17/2015 Chronic otitis externa 06/04/2011 5 Other specified forms of hearing loss 06/04/2011 05/17/2015 FAMILY HX-GI MALIGNANCY- aunt and uncle 10/29/1905/17/2015 Reflux esophagitis 07/29/2019 documented as of this encounter (statuses as of 05/20/2023) Immunizations Name Administration Dates Next Due COVID-19 [...] encounter Miscellaneous Notes * Telephone Encounter - Aubree Louis LPN - 04/26/2023 11:08 AM EDT Provider to address: questions Reason for Call: Advice Contact: Telephone Call Contact Type: Assessment Outcome: Patient is calling. A couple days ago came in and gave a urine. Symptoms had just started for possible UTI. This morning it is much worse. Urgency is worse. Has abdominal pressure. Asking ifshe need to come back in and give another sample or wait till the culture comes back tomorrow? Please advise. Total Time including non face to face (minutes): 5 * Telephone Encounter - LEE Mahoney - 04/26/2023 11:05 AM EDT Reason for patient's call: no better uti more frequency was not prescribed any meds Caller was transferred to Aubree at the nurse line. documented in this encounter Plan of Treatment Upcoming Encounters Date Type Specialty Care Team Description 06/03/2023 Office Visit Family Medicine Pool Galvan MD [address] [place] [address] Scheduled Procedures Name Priority Associated Diagnoses Date/Ti [...] Td or Tdap) 04/21/2023 04/21/2013, 02/23/2007, 07/29/1993 COVID-19 Vaccine (5 - Moderna series) 07/06/2023 05/11/2023, 03/14/2022, 05/29/2021, Additional history exists Mammogram 11/30/2023 11/29/2022, 10/26, 11/22/2020, Additional history exists Diabetes Screening 10/31/2025 10/31/2022, 0 05/25/2021, 05/16/2020, Additional history exists DXA Scan 11/03/2026 11/04/2019, 09/11/2007 COLONOSCOPY-EVERY 5 YRS AGES 18-100 11/27/2027 11/26/2022, 11/26/2022, 03/26/2017 Pneumococcal Vaccine: 65+ Years Completed 06/01/2022, 10/06/2019 Influenza Vaccine (FLU shot) Completed , 06/01/2022, [...] filedocumented as of this encounter Care Teams Insect Control Aide Relationship Specialty Start Date End Date Pool Galvan MD [address] [place] [address] PCP - General Family Medicine 10/11/14 documented as of this encounter
--- NOTE | 2023-10-30 08:00 | Electrocardiogram Report ---
Test Reason : Blood Pressure : / mmHG Vent. Rate : 070 BPM Atrial Rate : 070 BPM P-R Int : 198 ms QRS Dur : 084 ms QT Int : 392 ms P-R-T Axes : 052 032 058 degrees QTc Int : 423 ms Normal sinus rhythm Low voltage QRS Diffuse Minor Nonspecific T wave abnormality Abnormal ECG When compared with ECG of 13-JUL-2003 16:06, Nonspecific T wave abnormality now present Confirmed by Dusty Arias ([id number]) on 10/30/2023 8:00:23 AM Referred By: REFERRED SELF Confirmed By:Dusty Arias
[2023-10-30] MEDS: FAMOTIDINE 20MG/5ML IV PUSH IV ONE (08:09)
[2023-10-30] MEDS: methylPREDNISolone 60 MG in SYRINGE 0 ML IV SCH (08:10)
[2023-10-30] MEDS: FAMOTIDINE 20MG IV PUSH 20 MG/5 ML SYR IV SCH (08:10)
[2023-10-30] MEDS ORDERED: methylPREDNISolone 125 MG/2 ML VIAL IV SCH (09:00)
--- NOTE | 2023-10-30 10:22 | Electrocardiogram Report ---
Test Reason : Blood Pressure : / mmHG Vent. Rate : 056 BPM Atrial Rate : 056 BPM P-R Int : 232 ms QRS Dur : 080 ms QT Int : 456 ms P-R-T Axes : 055 016 013 degrees QTc Int : 440 ms Sinus bradycardia with 1st degree A-V block Diffuse Minor Nonspecific T wave abnormality Abnormal ECG When compared with ECG of 29-OCT-2023 16:33, [place] interval has increased Confirmed by Dusty Arias ([id number]) on 10/30/2023 10:22:34 AM Referred By: REFERRED SELF Confirmed By:Dusty Arias
--- NOTE | 2023-10-30 13:43 | Cardiology Consultation ---
Date of Consultation October 30, 2023 Assessment & Plan (1) Chest pain: (2) Urticarial rash: Plan Patient seen/examined today in collaboration with Dr. Dickinson. See attending rendering equipment tender's documentation for additional recommendations and plan of care. Supervising Physician Co-Signing Physician Notes Attending Staff: Pt seen and evaluated with AP Staff Concur with observations and plans 68 yo woman presenting with Chest Pain + Hives Consultation for : Chest pain No known CV history ASCVD Risks: * No HTN, Hyperlipidemia, no known hx of IA * LDL 67 - 05/2023 * Non-smoker * Not diabetic On Presentation: * Hives * Diffuse * Developed severe CP radiating to back * EKG on presentation - no active ischemic changes; u waves vs biphasic T waves * Troponin negative x 3 * ECHO - LVEF 60-65%; no significant valvular heart disease * CXR - no infiltrates * For HIVES - H2 Blockers + Steroids - rash improved * Chest Pain - resolved * Not markedly hypertensive on presentation - HR 120's * Recent UTI - was on Macrobid - may have been the inciting event * Explained to patient that if she feels ongoing chest tightness, that we would recommend Coronary CTA (no shellfish or contrast allergies) * Pt can follow up with Cardiology PRN * Please call back with any additional questions Leonard Dickinson History of Present Illness Reason for Consultation: Chest pain Requesting Physician: Dr. Hidalgo Attending Physician: Dr. Dickinson History of Present Illness Patient is a 68 year old female who presented to [facility] to with chest pain and rash/hives. Patient reports itching and hives began yesterday, all over her body, worse in the groin/abdominal region. She was feeling weak/tired. She then developed severe chest pain radiating to her back. Pain lasted 2 hours and came to ER for evaluation. EKG on arrival with NSR, minor diffuse S/T abnormality but no acute ischemic changes. HS troponin negative x3. She received steroids, Pepcid, and Zyrtec in the ER and rash improved on face. She recently finished Macrobid for UTI on 10/26. History includes: 1. GERD 2. Ariza's esophagus with history of esophagitis 3. B12 deficiency At time of consult today patient feeling well. Rash greatly improved. No recurrent chest pain. She denies recent exertional chest pain or dyspnea. Anxious for discharge. Going to [place] tomorrow. Allergies Allergy/AdvReac Type Severity Reaction Status Date / Time gluten Allergy Intermediate stomach Verified 10/29/23 19:57 ache, nausea lactose Allergy Intermediate diarrhea, Verified 10/29/23 19:57 cramps, nausea, fatigue soy Allergy Intermediate acid Verified 10/29/23 22:05 reflux, lost voice, difficulty swallowing Home Medications Medication Instructions Recorded Confirmed Type acetaminophen 500 mg tablet 1,000 mg PO TID PRN pain 12/27/20 10/29/23 History lifitegrast 5 % eye drops in a 1 drp ophthalmic (eye) BID 12/27/20 10/29/23 History dropperette (Xiidra) conjugated estrogens 0.625 mg/gram 0.3125 mg vaginal 2XWK 10/29/23 10/29/23 History vaginal cream (Premarin) cetirizine 10 mg tablet 10 mg PO DAILY #10 tabs 10/30/23 Rx famotidine 20 mg tablet (Pepcid) 20 mg PO BID 10 days #20 tabs 10/30/23 Rx methylprednisolone 4 mg tablets in 4 mg PO DAILY #21 ea 10/30/23 Rx a dose pack (Methylpred DP) Patient History Medical History Left foot pain Chronic thumb pain, bilateral Asymptomatic menopausal state Postmenopausal atrophic vaginitis Osteopenia dexa 04/13 Surgical History History of tonsillectomy and adenoidectomy H/O oral surgery History of colonoscopy H/O section x2 Family History Mother Cancer unknown primary, lung? Uncle No problems noted. Aunt No problems noted. Father Pancreatic cancer Other Breast cancer Denies family history of Ovarian cancer Social History Smoking Status: Never smoker Do You Dip or Chew Tobacco: No; Hx Alcohol Use: No Hx Substance Use: No Preferred Language: Croatian Communication Ability: Effective Can Feeder Required: No Beliefs That Will Affect Care: None Current Living Situation: Spouse Feels Safe at Home: Yes Safety Concerns: Feels Safe At This Time Assistive Devices: None Review of Systems Review of Systems: All systems reviewed & are unremarkable except as noted in HPI & below Physical Exam Physical Exam: Overweight No elevation in JVP S1S2 - soft 2/6 systolic murmur CTA B + Macular/papular evanescent rash on slim k No LE edema Warm and perfusing Results & Data Vital Signs (Past 12 Hours) Vital Signs Temp Pulse Pulse Resp BP BP Pulse Ox 10/30/23 12:40 70 15 97 10/30/23 12:30 63 19 97 10/30/23 12:20 63 20 92 10/30/23 12:10 62 19 96 10/30/23 12:00 75 22 89 L 10/30/23 11:50 66 26 H 93 10/30/23 11:40 65 14 94 10/30/23 11:30 60 16 98 10/30/23 11:20 76 20 96 10/30/23 11:10 59 L 16 95 10/30/23 11:00 64 20 97 10/30/23 10:50 62 18 95 10/30/23 10:40 54 L 18 96 10/30/23 10:30 70 12 95 10/30/23 10:20 58 L 18 95 10/30/23 10:10 55 L 18 97 10/30/23 10:00 53 L 17 97 10/30/23 09:50 59 L 14 98 10/30/23 09:40 53 L 13 98 10/30/23 09:30 55 L 14 97 10/30/23 09:20 53 L 17 98 10/30/23 09:10 55 L 20 94 10/30/23 09:01 55 L 10/30/23 09:00 54 L 14 99 10/30/23 08:50 60 13 95 10/30/23 08:40 56 L 13 96 10/30/23 08:30 55 L 14 97 10/30/23 08:20 61 18 96 10/30/23 08:15 97/56 L 10/30/23 08:15 60 14 97 10/30/23 08:10 63 36 H 86 L 10/30/23 08:00 53 L 15 97 10/30/23 07:50 60 16 98 10/30/23 07:40 65 18 93 10/30/23 07:30 72 17 92 10/30/23 07:20 62 16 93 10/30/23 07:10 66 23 93 03/06/24 06:50 64 19 94 10/30/23 06:40 65 9 L 94 10/30/23 06:30 57 L 17 94 10/30/23 06:20 62 5 L 94 10/30/23 06:10 66 12 94 10/30/23 06:00 66 7 L 93 10/30/23 05:50 64 5 L 93 10/30/23 05:40 63 14 93 10/30/23 05:30 62 17 93 10/30/23 05:20 63 17 93 10/30/23 05:10 61 8 L 93 10/30/23 05:00 64 15 92 10/30/23 04:50 68 16 92 10/30/23 03:56 36.9 C 62 18 108/62 99 10/30/23 02:47 37.0 C 65 18 106/63 99 10/30/23 02:47 Pulse Ox O2 Del Method O2 Del Method 10/30/23 12:40 10/30/23 12:30 10/30/23 12:20 10/30/23 12:10 10/30/23 12:00 10/30/23 11:50 10/30/23 11:40 10/30/23 11:30 10/30/23 11:20 10/30/23 11:10 10/30/23 11:00 10/30/23 10:50 10/30/23 10:40 10/30/23 10:30 10/30/23 10:20 10/30/23 10:10 10/30/23 10:00 10/30/23 09:50 10/30/23 09:40 10/30/23 09:30 10/30/23 09:20 10/30/23 09:10 10/30/23 09:01 10/30/23 09:00 10/30/23 08:50 10/30/23 08:40 10/30/23 08:30 10/30/23 08:20 10/30/23 08:15 10/30/23 08:15 10/30/23 08:10 10/30/23 08:00 10/30/23 07:50 10/30/23 07:40 10/30/23 07:30 10/30/23 07:20 10/30/23 07:10 10/30/23 06:50 10/30/23 06:40 10/30/23 06:30 10/30/23 06:20 10/30/23 06:10 10/30/23 06:00 10/30/23 05:50 10/30/23 05:40 10/30/23 05:30 10/30/23 05:20 10/30/23 05:10 10/30/23 05:00 10/30/23 04:50 10/30/23 03:56 Room Air 10/30/23 02:47 Room Air 10/30/23 02:47 99 Room Air Laboratory Results Cardiac Enzymes 10/29/23 10/29/23 10/30/23 Range/Units 16:35 21:43 03:48 AST 27 (13-39) U/L Troponin I High Sens 3.7 3.3 2.9 (0-14) pg/ml 10/30/23 Range/Units 11:18 AST (13-39) U/L Troponin I High Sens 3.6 (0-14) pg/ml CBC 10/29/23 10/30/23 Range/Units 16:35 03:48 WBC 10.44 6.70 (4.8-10.8) K/ul RBC 4.89 4.48 (4.20-5.40) M/uL Hgb 14.3 13.0 (12.0-16.0) g/dl Hct 42.3 38.5 (37.0-47.0) % Plt Count 243 247 (130-400) K/uL Neut # (Auto) 8.95 H 5.95 (1.40-6.50) K/uL Lymph # (Auto) 0.95 L 0.62 L (1.20-3.40) K/uL [place] # (Auto) 0.47 0.10 L (0.11-0.59) K/uL Eos # (Auto) 0.04 0.00 (0.00-0.50) K/uL Baso # (Auto) 0.01 0.00 (0.00-0.20) K/uL Comprehensive Metabolic Panel 10/29/23 10/30/23 Range/Units 16:35 03:48 Sodium 137 138 (136-145) mmol/L Potassium 4.5 4.0 (3.5-5.1) mmol/L Chloride 104 108 H (98-107) mmol/L Carbon Dioxide 27 24 (21-32) mmol/L BUN 18 15 (6-23) mg/dl Creatinine 0.78 0.67 (0.6-1.2) mg/dl Glucose 116 H 136 H (70-99(Fasting)) mg/dl Calcium 9.2 9.0 (8.6-10.3) mg/dl AST 27 (13-39) U/L ALT 46 (7-52) U/L Alkaline Phosphatase 78 (34-104) U/L Total Protein 6.5 (6.0-8.3) gm/dl Albumin 4.4 (3.4-5.0) gm/dl Intake and Output 10/29/23 10/30/23 10/30/23 22:59 06:59 14:59 Other: Weight 78.6 kg 78.6 kg Weight Measurement Method Chair Scale Built in [facility] Diagnostic Findings Telemetry reviewed: NSR, no arrhythmias. Echo report reviewed dated 10/30/23: Mild concentric LVH LV wall motion is normal EF 60-65% No significant valvular disease Aortic root is normal in size No pericardial effusion EKG reviewed from admission 10/29/23: NSR, low voltage QRS Diffuse minor nonspecific T wave abnormality Compared with prior EKG, Jun 2003 - nonspecific T wave abnormality noted Repeat EKG this morning at 10/30/23: Sinus bradycardia at 56 bmp Mild diffuse T wave abnormality in inferior and lateral leads. Outpatient ZIO monitor report reviewed dated 06/01/22: Patient had a min HR of 44 bpm, max HR of 139 bpm, and avg HR of 69 bpm. Predominant underlying rhythm was Sinus Rhythm. First Degree AV Block was present. 1 run of Supraventricular Tachycardia occurred lasting 10 beats with a max rate of 139 bpm (avg 125 bpm). Some episodes of Supraventricular Tachycardia may be possible Atrial Tachycardia with variable block. Isolated SVEs were rare (<1.0%, 455), SVE Couplets were rare (<1.0%, 30), and SVE Triplets were rare (<1.0%, 7). Isolated VEs were rare (<1.0%), VE Couplets were rare (<1.0%), and no VE Triplets were present. Ventricular Bigeminy and Trigeminy were present. Agree with Preliminary Findings The patient's diary and triggered events correlated sinus rhythm Medications Administered Current Inpatient Medications Acetaminophen (Acetaminophen 325 Mg Tab) 650 mg PO Q4H PRN PRN Reason: Pain or Fever Stop: 11/28/23 21:59 Artificial Tears (Artificial Tears) 1 drops OP QID PRN PRN Reason: dry eyes Stop: 11/28/23 22:10 Famotidine (Pepcid 20mg Iv Push) 20 mg in 5 mls @ 2.5 mls/min IV Q12H MARY Stop: 11/29/23 08:59 Last Admin: 10/30/23 08:10 Dose: 2.5 mls/min Methylprednisolone 60 mg/ (Syringe) 0.96 mls @ 1.5 mls/min IV DAILY MARY Stop: 11/29/23 08:59 Last Admin: 10/30/23 08:10 Dose: 1.5 mls/min Nitroglycerin (Nitroglycerin Sl 0.4 Mg/Tab Tab) 0.4 mg SL Q5M PRN PRN Reason: Chest Pain Stop: 11/28/23 21:59 (1) Chest pain Chest pain type: unspecified Qualified Code(s): R07.9 - Chest pain, unspecified
--- NOTE | 2023-10-30 18:10 | Hospitalist Progress Note ---
Date of Service October 30, 2023 Assessment & Plan (1) Chest pain: Plan 68-year-old female with past med history significant for allergic rhinitis, mild intermittent asthma, GERD, irritable bowel syndrome, Ariza's esophagus with esophagitis, B12 deficiency, rosacea, osteoarthritis, stapedial myoclonus, right sacral radiculopathy, neuropathy, gluten intolerance, lactose intolerance, history of COVID, history of vertigo, comes because of hives and itching all over the body since last night and also chest pain today afternoon. Patient states since yesterday evening having significant itching of the hands and legs and then developed hives all over the body mostly in the groin and the belly region and also in the legs and face region. Today morning she was feeling very weak and tired. She made an appointment with urgent care around 3 PM. Around 2 PM when she had her lunch she suddenly developed severe chest pain in the middle of the chest radiating to the back which prompted her to come to the ER. The pain lasted waxing and waning for 2 hours. Currently chest pain-free. No shortness of breath. No dizziness. No blurred visions. When she had the pain she had a earache but it is gone now. No runny nose or sore throat. No cough. No fevers. No nausea. No abdominal pain. Normal bowel and bladder movements. With the steroids and Pepcid and Zyrtec in the ER rash on the face improved and itching is improving but still has significant hives in the groin and lower extremity. She is allergic to wheat and she had wheat product couple of days ago but usual symptoms are stomach upset and she never had rash and itching before.Also recently she was on Macrobid for UTI seems finished the course on October 26. She had some itchiness, couple of days ago before the hives developing. Currently resting comfortably and hemodynamic stable. She has travel plans on . Says she has dermatology appointment for hives tomorrow around 3:40 PM Chest pain Was in the middle of the chest radiating to the back Currently chest pain-free Hemodynamic stable Resting comfortably Initial troponin and EKG unremarkable Will follow serial cardiac enzymes and echo N.p.o. for now Consult cardiology in a.m. Rash Hives and itching Currently more pronounced in lower extremities Received Decadron, Pepcid and Zyrtec in the ER Patient states she is allergic to Benadryl and she gets jittery and does not feel good with Benadryl So far tolerating Zyrtec okay Will continue with Solu-Medrol, Pepcid and if tolerates will continue Zyrtec Consult allergy and immunology in a.m. Closely monitor the response History of Ariza's esophagitis Currently placed on Pepcid DVT prophylaxis SCDs Disposition Observation telemetry Full code Admission and Anticipated Discharge Date Admission Date: October 29, 2023 Results & Data Results & Data Vital Signs (Past 12 Hours) Vital Signs Temp Pulse Pulse Resp BP BP Pulse Ox 10/30/23 14:27 36.9 C 62 15 108/62 97 10/30/23 12:40 70 15 97 10/30/23 12:30 63 19 97 10/30/23 12:20 63 20 92 10/30/23 12:10 62 19 96 10/30/23 12:00 75 22 89 L 10/30/23 11:50 66 26 H 93 10/30/23 11:40 65 14 94 10/30/23 11:30 60 16 98 10/30/23 11:20 76 20 96 10/30/23 11:10 59 L 16 95 10/30/23 11:00 64 20 97 10/30/23 10:50 62 18 95 10/30/23 10:40 54 L 18 96 10/30/23 10:30 70 12 95 10/30/23 10:20 58 L 18 95 10/30/23 10:10 55 L 18 97 10/30/23 10:00 53 L 17 97 10/30/23 09:50 59 L 14 98 10/30/23 09:40 53 L 13 98 10/30/23 09:30 55 L 14 97 10/30/23 09:20 53 L 17 98 10/30/23 09:10 55 L 20 94 10/30/23 09:01 55 L 10/30/23 09:00 54 L 14 99 10/30/23 08:50 60 13 95 10/30/23 08:40 56 L 13 96 10/30/23 08:30 55 L 14 97 10/30/23 08:20 61 18 96 10/30/23 08:15 97/56 L 10/30/23 08:15 60 14 97 10/30/23 08:10 63 36 H 86 L 10/30/23 08:00 53 L 15 97 10/30/23 07:50 60 16 98 10/30/23 07:40 65 18 93 10/30/23 07:30 72 17 92 10/30/23 07:20 62 16 93 10/30/23 07:10 66 23 93 10/30/23 06:50 64 19 94 10/30/23 06:40 65 9 L 94 10/30/23 06:30 57 L 17 94 10/30/23 06:20 62 5 L 94 (1) Chest pain Chest pain type: unspecified Qualified Code(s): R07.9 - Chest pain, unspecified
--- NOTE | 2023-10-30 18:11 | Discharge Summary ---
Discharge Summary Date of Service October 30, 2023 Admission HPI Per Admitting Provider 68-year-old female with past med history significant for allergic rhinitis, mild intermittent asthma, GERD, irritable bowel syndrome, Ariza's esophagus with esophagitis, B12 deficiency, rosacea, osteoarthritis, stapedial myoclonus, right sacral radiculopathy, neuropathy, gluten intolerance, lactose intolerance, history of COVID, history of vertigo, comes because of hives and itching all over the body since last night and also chest pain today afternoon. Patient states since yesterday evening having significant itching of the hands and legs and then developed hives all over the body mostly in the groin and the belly region and also in the legs and face region. Today morning she was feeling very weak and tired. She made an appointment with urgent care around 3 PM. Around 2 PM when she had her lunch she suddenly developed severe chest pain in the middle of the chest radiating to the back which prompted her to come to the ER. The pain lasted waxing and waning for 2 hours. Currently chest pain-free. No shortness of breath. No dizziness. No blurred visions. When she had the pain she had a earache but it is gone now. No runny nose or sore throat. No cough. No fevers. No nausea. No abdominal pain. Normal bowel and bladder movements. With the steroids and Pepcid and Zyrtec in the ER rash on the face improved and itching is improving but still has significant hives in the groin and lower extremity. She is allergic to wheat and she had wheat product couple of days ago but usual symptoms are stomach upset and she never had rash and itching before.Also recently she was on Macrobid for UTI seems finished the course on October 26. She had some itchiness, couple of days ago before the hives developing. Currently resting comfortably and hemodynamic stable. She has travel plans on . Says she has dermatology appointment for hives tomorrow around 3:40 PM Past med history. As mentioned above Past surgical history. . Colonoscopy. EGD. Tonsillectomy and adenoidectomy. Social history. . No smoking. Alcohol occasional. No drug use. Family history. Father had pancreatic cancer mother had cancer. Maternal aunt had cancer. Principal Dx & Hospital Course #1 = Principal Diagnosis (1) Chest pain: Plan 68-year-old female with past med history significant for allergic rhinitis, mild intermittent asthma, GERD, irritable bowel syndrome, Ariza's esophagus with esophagitis, B12 deficiency, rosacea, osteoarthritis, stapedial myoclonus, right sacral radiculopathy, neuropathy, gluten intolerance, lactose intolerance, history of COVID, history of vertigo, comes because of hives and itching all over the body since last night and also chest pain today afternoon. Patient states since yesterday evening having significant itching of the hands and legs and then developed hives all over the body mostly in the groin and the belly region and also in the legs and face region. Today morning she was feeling very weak and tired. She made an appointment with urgent care around 3 PM. Around 2 PM when she had her lunch she suddenly developed severe chest pain in the middle of the chest radiating to the back which prompted her to come to the ER. The pain lasted waxing and waning for 2 hours. Currently chest pain-free. No shortness of breath. No dizziness. No blurred visions. When she had the pain she had a earache but it is gone now. No runny nose or sore throat. No cough. No fevers. No nausea. No abdominal pain. Normal bowel and bladder movements. With the steroids and Pepcid and Zyrtec in the ER rash on the face improved and itching is improving but still has significant hives in the groin and lower extremity. She is allergic to wheat and she had wheat product couple of days ago but usual symptoms are stomach upset and she never had rash and itching before.Also recently she was on Macrobid for UTI seems finished the course on October 26. She had some itchiness, couple of days ago before the hives developing. Currently resting comfortably and hemodynamic stable. She has travel plans on . Says she has dermatology appointment for hives tomorrow around 3:40 PM Chest pain Was in the middle of the chest radiating to the back Currently chest pain-free Hemodynamic stable Resting comfortably Initial troponin and EKG unremarkable Will follow serial cardiac enzymes and echo N.p.o. for now Consult cardiology in a.m. Rash Hives and itching Currently more pronounced in lower extremities Received Decadron, Pepcid and Zyrtec in the ER Patient states she is allergic to Benadryl and she gets jittery and does not feel good with Benadryl So far tolerating Zyrtec okay Will continue with Solu-Medrol, Pepcid and if tolerates will continue Zyrtec Consult allergy and immunology in a.m. Closely monitor the response History of Ariza's esophagitis Currently placed on Pepcid DVT prophylaxis SCDs Disposition Observation telemetry Full code Updated Medication List Medication Instructions Recorded Confirmed Type acetaminophen 500 mg tablet 1,000 mg PO TID PRN pain 12/27/20 10/29/23 History lifitegrast 5 % eye drops in a 1 drp ophthalmic (eye) BID 12/27/20 10/29/23 His tory dropperette (Xiidra) conjugated estrogens 0.625 mg/gram 0.3125 mg vaginal 2XWK 10/29/23 10/29/23 History vaginal cream (Premarin) cetirizine 10 mg tablet 10 mg PO DAILY #10 tabs 10/30/23 Rx famotidine 20 mg tablet (Pepcid) 20 mg PO BID 10 days #20 tabs 10/30/23 Rx methylprednisolone 4 mg tablets in 4 mg PO DAILY #21 ea 10/30/23 Rx a dose pack (Methylpred DP) Hospital Stay Data Consultations 10/29/23 21:04 ED Decision to Admit Stat 10/30/23 08:00 Consult Allergy / Immunology Routine Consult Cardiology Routine Pending Results Patient Have Any Pending Studies at Discharge: No Discharge Instructions Given to Patient (Per Discharging Provider) PLEASE REFER TO YOUR NEW MEDICATION LIST AND FOLLOW INSTRUCTIONS CAREFULLY. YOUR NEW MEDICATIONS INCLUDE: MEDROL DOSEPAK- steroid taper for drug allergy PEPCID- twice a day for drug allergy and esophagitis, hiatal hernia CETIRIZINE- antihistamine for drug allergy PLEASE CALL YOUR PRIMARY CARE PHYSICIAN OR RETURN TO THE ER IF WITH WORSENING OF SYMPTOMS, INCLUDING chest pain, palpitations, shortness of breath, abdominal pain, nausea/vomiting, bloody/black stools, recurrence of rash, itching, lip swelling, etc. FOLLOW UP WITH PRIMARY CARE PHYSICIAN ONCE YOU RETURN FROM YOUR TRIP (LAST WEEK OF OCTOBER). FOLLOW UP WITH WORK MANAGER DR. GIBSON ONCE YOU RETURN FROM YOUR TRIP (LAST WEEK OF OCTOBER). PLEASE CALL HIS CLINIC FOR AN APPOINTMENT. CONTACT INFORMATION OUTLINED ABOVE.
== END 2023-10-30 14:42 | disposition home or self-care (01) ==
LOC: EDINP 15:20 → ED 15:20 → EDINP 22:01